=== PATIENT | female | born 1950 | race Caucasian/White ===

== ENCOUNTER 2017-10-02 09:48 | Day surgery (SDC) | payer MEDICARE ==
[~2017-10-02 09:48] MED LIST: ALBU0.63 NEB; ASPI81TA52 PO; ATOR40TA3 PO; CLOP75TA15 PO; FEXO180T94 PO; LEVO125T PO; LISI-600 PO; METF500T PO; OMEP40CA37 PO; TRAZ-143 PO
== END 2017-10-02 11:16 | disposition home or self-care (01) ==
LOC: WOUND CARE 09:48
PROVIDERS: ATTEND Surgery
DX: E11.621 Type 2 diabetes mellitus with foot ulcer (principal); L89.613 Pressure ulcer of right heel, stage 3; L97.411 Non-pressure chronic ulcer of right heel and midfoot limited to breakdown of skin; E11.65 Type 2 diabetes mellitus with hyperglycemia; I10 Essential (primary) hypertension; Z86.73 Personal history of transient ischemic attack (TIA), and cerebral infarction without residual deficits; Z87.891 Personal history of nicotine dependence; Z90.710 Acquired absence of both cervix and uterus; Z90.49 Acquired absence of other specified parts of digestive tract
CPT/HCPCS: 36416; 82948; 97597; A6021; A6206; A6209

== ENCOUNTER 2017-10-11 09:29 | Day surgery (SDC) | payer MEDICARE ==
[2017-10-11] MEDS ORDERED: LIDOcaine 2% 5ml jelly ONE (09:51)
== END 2017-10-11 10:41 | disposition home or self-care (01) ==
LOC: WOUND CARE 09:29
PROVIDERS: ATTEND Surgery
DX: E11.621 Type 2 diabetes mellitus with foot ulcer (principal); L89.613 Pressure ulcer of right heel, stage 3; L97.411 Non-pressure chronic ulcer of right heel and midfoot limited to breakdown of skin; E11.65 Type 2 diabetes mellitus with hyperglycemia; I10 Essential (primary) hypertension; Z86.73 Personal history of transient ischemic attack (TIA), and cerebral infarction without residual deficits; Z87.891 Personal history of nicotine dependence; Z90.710 Acquired absence of both cervix and uterus; Z90.49 Acquired absence of other specified parts of digestive tract
CPT/HCPCS: 36416; 82948; 97597; A6021; A6209; A6222; A6446

== ENCOUNTER 2017-10-18 09:25 | Day surgery (SDC) | payer MEDICARE ==
[2017-10-18] MEDS ORDERED: LIDOcaine 2% 5ml jelly ONE (09:49)
== END 2017-10-18 10:45 | disposition home or self-care (01) ==
LOC: WOUND CARE 09:25
PROVIDERS: ATTEND Surgery
DX: E11.621 Type 2 diabetes mellitus with foot ulcer (principal); L89.613 Pressure ulcer of right heel, stage 3; L97.411 Non-pressure chronic ulcer of right heel and midfoot limited to breakdown of skin; E11.65 Type 2 diabetes mellitus with hyperglycemia; I10 Essential (primary) hypertension; Z86.73 Personal history of transient ischemic attack (TIA), and cerebral infarction without residual deficits; Z87.891 Personal history of nicotine dependence; Z90.710 Acquired absence of both cervix and uterus; Z90.49 Acquired absence of other specified parts of digestive tract
CPT/HCPCS: 36416; 82948; 97597; A6021; A6206; A6209; A6446

== ENCOUNTER 2017-11-01 10:00 | Outpatient (CLI) | payer MEDICARE | END 2017-11-01 11:54 | disposition home or self-care (01) | LOC: WOUND CARE 10:00 | PROVIDERS: ATTEND Surgery | DX: E11.621 Type 2 diabetes mellitus with foot ulcer (principal); L89.613 Pressure ulcer of right heel, stage 3; L97.418 Non-pressure chronic ulcer of right heel and midfoot with other specified severity; E11.65 Type 2 diabetes mellitus with hyperglycemia; I10 Essential (primary) hypertension; Z86.73 Personal history of transient ischemic attack (TIA), and cerebral infarction without residual deficits; Z87.891 Personal history of nicotine dependence; Z90.710 Acquired absence of both cervix and uterus; Z90.49 Acquired absence of other specified parts of digestive tract | CPT/HCPCS: 99215; A4414; A6212 ==

== ENCOUNTER 2018-01-14 09:51 | Outpatient (CLI) | payer MEDICARE ==
[~2018-01-14 09:51] MED LIST changes: -TRAZ-143 PO; +TRAZ-218 PO
[2018-01-14] MEDS ORDERED: FURO-150 PO (10:51)
== END 2018-01-14 12:00 | disposition home or self-care (01) ==
LOC: WOUND CARE 09:51
PROVIDERS: ATTEND Surgery
DX: E11.621 Type 2 diabetes mellitus with foot ulcer (principal); L97.411 Non-pressure chronic ulcer of right heel and midfoot limited to breakdown of skin; E11.65 Type 2 diabetes mellitus with hyperglycemia; I10 Essential (primary) hypertension; Z86.73 Personal history of transient ischemic attack (TIA), and cerebral infarction without residual deficits; Z87.891 Personal history of nicotine dependence; Z90.710 Acquired absence of both cervix and uterus; Z90.49 Acquired absence of other specified parts of digestive tract
CPT/HCPCS: 36416; 82948; 99215; A6212

== ENCOUNTER 2024-02-28 22:21 | Emergency (ER) | payer BC, MEDICARE ==
[~2024-02-28] VITALS: Ht 144.8 cm; Wt 151.0 kg
[~2024-02-28 22:21] MED LIST changes: +ATOR-411 PO; -ATOR40TA3 PO; +FURO-150 PO; -LISI-600 PO; +LISI20TA28 PO; +OMEP40CA21 PO; -OMEP40CA37 PO; -TRAZ-218 PO; +TRAZ-251 PO
[2024-02-28 22:38] VITALS: BP 191/92; TEMP 97.8
[2024-02-28 23:07] LABS: BASOPHILS # (AUTO) 0.1 X10'3 (0-0.2); EOSINOPHILS # (AUTO) 0.1 X10'3 (0-0.9); EOSINOPHILS % (AUTO) 2.4 % (0-6); HEMATOCRIT 37.9 % (35.0-45.0); HEMOGLOBIN 13.1 g/dl (12.0-16.0); LYMPHOCYTES % (AUTO) 16.6 % (21-51); MEAN CORPUSCULAR HGB CONC 34.5 g/dL (33.0-36.5); MEAN CORPUSCULAR VOLUME 98.6 FL (78-98); MEAN PLATELET VOLUME 8.1 FL (7.4-10.4); MONOCYTES # (AUTO) 0.3 X10'3 (0-0.9); MONOCYTES % (AUTO) 5.7 % (2-12); NEUTROPHILS # (AUTO) 4.4 X10'3 (1.8-7.7); NEUTROPHILS % (AUTO) 74.3 % (42-75); PLATELET COUNT 310 X10'3 (140-440); RED BLOOD COUNT 3.85 X10'6 (4.20-5.60); RED CELL DISTRIBUTION WIDTH 16.4 % (11.5-14.5); WHITE BLOOD COUNT 5.9 X10'3 (4.5-11.0)
[2024-02-28 23:18] LABS: APTT 24 SECONDS (22-32); INR 0.9 INR; PROTHROMBIN TIME 9.9 SECONDS (9.0-12.0)
[2024-02-28 23:19] LABS: ALANINE AMINOTRANSFERASE 55 U/L (12-78); ALBUMIN 3.7 G/DL (3.4-5.0); ALKALINE PHOSPHATASE 117 IU/L (46-116); ANION GAP 8 (8-16); ASPARTATE AMINO TRANSFERASE 59 U/L (10-37); BILIRUBIN,TOTAL 0.4 MG/DL (0.1-1.0); BLOOD UREA NITROGEN 18 MG/DL (7-18); BUN/CREATININE RATIO 11.3 (10.0-20.0); CALCIUM 9.1 MG/DL (8.5-10.1); CHLORIDE 102 MMOL/L (99-107); GLUCOSE 88 MG/DL (70-104); POTASSIUM 3.9 MMOL/L (3.5-5.1); SODIUM 141 MMOL/L (135-145); TOTAL CARBON DIOXIDE 30.7 MMOL/L (24-32); TOTAL PROTEIN 7.4 G/DL (6.4-8.2); eCRCL 19 ML/MIN; eGFR 31 ML/MIN
[2024-02-28 23:24] LABS: BILIRUBIN,DIRECT 0.1 MG/DL (0-0.3)
[2024-02-29 00:42] LABS: BILIRUBIN,URINE NEGATIVE (Neg); CLARITY,URINE SLIGHTLY CLOUDY (Clear); COLOR,URINE YELLOW (Yellow); GLUCOSE, URINE NEGATIVE (Neg); KETONES,URINE NEGATIVE (Neg); LEUKOCYTE ESTERASE ,URINE NEGATIVE (Neg); NITRITES, URINE NEGATIVE (Neg); OCCULT BLOOD,URINE NEGATIVE (Neg); PROTEIN,URINE TRACE mg/dl (Neg); UROBILINOGEN,URINE 0.2 E.U/dL (0.2-1.0)
[2024-02-29 00:44] LABS: UA COLLECTION TYPE VOIDED
[2024-02-29 00:52] LABS: TRANSITIONAL EPI CELLS,URINE MODERATE /HPF
[2024-02-29] MEDS: acetaminophen 325mg tablet PO ONE (00:52)
[2024-02-29 00:54] LABS: AMORPHOUS URATES 1+; BACTERIA,URINE 2+ /HPF (Neg); COARSE GRANULAR CAST 0-3 /LPF (NEGATIVE); HYALINE CASTS 0-3 /LPF (NEGATIVE); MUCUS STRANDS FEW /LPF (Neg); RBC,URINE NONE SEEN /HPF (0-2)
[2024-02-29 00:56] LABS: SQUAMOUS EPITHELIAL CELL,UR MODERATE /LPF (FEW)
[2024-02-29 01:04] VITALS: PULSE 85; RESP 16; O2SAT 99
== END 2024-02-29 01:06 | disposition home or self-care (01) ==
LOC: ER 22:23
DX: S00.03XA Contusion of scalp, initial encounter (principal); R94.31 Abnormal electrocardiogram [ECG] [EKG]; M54.2 Cervicalgia; G89.29 Other chronic pain; M54.9 Dorsalgia, unspecified; Z88.2 Allergy status to sulfonamides; Z88.8 Allergy status to other drugs, medicaments and biological substances; Z88.0 Allergy status to penicillin; Z88.1 Allergy status to other antibiotic agents; Z79.84 Long term (current) use of oral hypoglycemic drugs; Z79.82 Long term (current) use of aspirin; Z79.899 Other long term (current) drug therapy; W18.39XA Other fall on same level, initial encounter; Y93.89 Activity, other specified; Y92.89 Other specified places as the place of occurrence of the external cause; Y99.8 Other external cause status
CPT/HCPCS: 36415; 70450; 71045; 72125; 80048; 80076; 81001; 84484; 85025; 85610; 85730; 87088; 93005; 99285

== ENCOUNTER 2024-10-06 19:28 | Inpatient (IN) | payer BC ==
[~2024-10-06] VITALS: Ht 147.3 cm; Wt 57.0 kg
[~2024-10-06 19:28] MED LIST changes: -CLOP75TA15 PO
--- NOTE | 2024-10-06 19:33 | ELECTROCARDIOGRAPH REPORT ---
[facility] Test Date: 2024-10-06 Test Time: 19:29:20 Pat Name: JOB PETTY Department: EMERGENCY ROOM Room: Gender: F Policy Change Clerk: : 1950 Requested By: IRMA ESQUIVEL Order Number: [id number] Reading MD: Measurements Intervals [place] Rate: 82 P: -40 NM: 142 QRS: -10 QRSD: 83 T: 98 QT: 362 QTc: 423 Interpretive Statements Sinus rhythm Nonspecific T abnormalities, lateral leads Please click the below link to view image of tracing.
[2024-10-06 19:46] LABS: BASOPHILS # (AUTO) 0.1 X10'3 (0-0.2); BASOPHILS % (AUTO) 1.2 % (0-1); EOSINOPHILS # (AUTO) 0.2 X10'3 (0-0.9); HEMATOCRIT 31.2 % (35.0-45.0); HEMOGLOBIN 10.2 g/dl (12.0-16.0); LYMPHOCYTES # (AUTO) 1.2 X10'3 (1.1-4.8); LYMPHOCYTES % (AUTO) 18.8 % (21-51); MEAN CORPUSCULAR HEMOGLOBIN 31.7 PG (27.0-31.0); MEAN CORPUSCULAR HGB CONC 32.8 g/dL (33.0-36.5); MEAN CORPUSCULAR VOLUME 96.5 FL (78-98); MEAN PLATELET VOLUME 7.6 FL (7.4-10.4); MONOCYTES # (AUTO) 0.6 X10'3 (0-0.9); MONOCYTES % (AUTO) 9.4 % (2-12); NEUTROPHILS # (AUTO) 4.4 X10'3 (1.8-7.7); NEUTROPHILS % (AUTO) 67.6 % (42-75); PLATELET COUNT 371 X10'3 (140-440); RED BLOOD COUNT 3.23 X10'6 (4.20-5.60); RED CELL DISTRIBUTION WIDTH 14.5 % (11.5-14.5); WHITE BLOOD COUNT 6.5 X10'3 (4.5-11.0)
--- NOTE | 2024-10-06 19:51 | Physician Documentation ---
History of Present Illness ~ Chief Complaint: Chest Pain Stated Complaint: CP Time Seen by MD: 19:33 Primary Medical Doctor: J CARLOS Mode of Arrival: POV HPI Patient presents to the emergency room with central chest pain that woke her up from sleep this evening. No prior instances. Pressure-like in nature. No nausea or vomiting. She denies one legged pain or swelling. She does report distant history of aortic surgery. No exacerbating or relieving factors. Nitroglycerin had no effect. 11/29. Past medical history significant for chronic kidney disease, hypothyroidism, diabetes, hyperlipidemia, hypertension and patient does smoke. She denies history of coronary artery disease. She does endorse history of prior strokes and takes Plavix. She states she does not have a digital advertising analyst Medication Reconciliation Allergies: Coded Allergies: Sulfa (Sulfonamide Antibiotics) (Verified Allergy, Severe, ANAPHYLACTIC SHOCK, 02/25/16) capsaicin (Verified Allergy, Severe, BLISTERS ERYTHEMA RASH, 02/25/16) ketoprofen (Verified Allergy, Severe, ANAPHALAXIS, 02/25/16) cefotaxime (Verified Allergy, Intermediate, WHEAL AND FARE RXN, RED WELTS ON LIMBS AND FACE, 02/25/16) Penicillins (Verified Allergy, Mild, RASH HIVES, 02/25/16) Tetracyclines (Verified Allergy, Mild, HIVES, 02/25/16) doxycycline (Verified Allergy, Mild, RASH, 02/25/16) gentamicin (Verified Allergy, Mild, RASH, 02/25/16) heparin (porcine) (Verified Allergy, Mild, HIVES, 02/25/16) sulfacetamide (Verified Allergy, Mild, HIVES, 02/25/16) tobramycin (Verified Allergy, Mild, RASH, 02/25/16) Aminoglycosides (Unverified Allergy, Unknown, 02/25/16) LISTED ON HER MEDICAL RECORDS BY [facility], OR Pyrimidine Analogues (Unverified Allergy, Unknown, 02/25/16) LISTED ON HER MEDICAL RECORDS BY [facility], OR ciprofloxacin (Unverified Allergy, Unknown, 02/25/16) LISTED ON HER MEDICAL RECORDS BY [facility], OR zolpidem (Verified Adverse Reaction, Severe, SLEEPWALKING, INAPPROPRIATE BEHAVIOR, 02/25/16) minocycline (Verified Adverse Reaction, Intermediate, NAUSEA AND VOMITING, 02/25/16) promethazine (Verified Adverse Reaction, Mild, RASH, 02/25/16) Scheduled Albuterol Sulfate (Albuterol Sulfate), Unknown Dose NEB Q6H, (Reported) Atorvastatin Calcium (Lipitor), 1 TABLET PO HS, (Reported) Clopidogrel Bisulfate (Plavix), 75 MG PO DAILY, (Reported) Fexofenadine* (Angelica*), Unknown Dose PO DAILY, (Reported) Levothyroxine Sodium (Synthroid), 1 TAB PO DAILY, (Reported) Lisinopril (Lisinopril), 1 TAB PO DAILY, (Reported) Metformin Hcl* (Glucophage*), 1 TAB PO DAILY, (Reported) Omeprazole (Prilosec), 20 MG PO DAILY, (Reported) Trazodone HCl (Trazodone HCl), 1 TAB PO HS, (Reported) Discontinued Medications Aspirin (Aspirin EC), 1 TABLET PO DAILY, (Reported) Discontinued Reason: completed med therapy Furosemide* (Lasix*), 1 TAB PO DAILY, (Reported) Discontinued Reason: completed med therapy Past Medical History Past Medical History: Multiple Sclerosis, *RENAL/*, Chronic Back Pain Past Surgical History: noncontributory Alcohol Use: None Drug Use: none Lives with: Family Lives In: Home Review of Systems ROS All review of systems negative except as per HPI Physical Exam Vital Signs: Temperature: 98.8, Source: Oral, Heart Rate: 75, Respiratory Rate: 17, BP: 114/67, Pulse Oximetry: 94, Weight: 57.000 Physical Exam General: Patient is awake, alert, oriented x4 in no acute distress Head: Normocephalic and atraumatic. Eyes: Conjunctival normal. EOMI. PERRL. ENT: Mucous membranes moist. Neck: Supple, trachea is midline. Chest: Clear to auscultation bilaterally without rales, rhonchi, or wheezes. There is no accessory muscle use or retractions. Cardiac: RRR without murmurs, gallops, or rubs. Abd: Soft, nondistended, nontender, with normoactive bowel sounds. No guarding, rebound, or rigidity. Extremities: Normal strength. Normal range of motion. No deformities or edema. Progress Progress Note Noted mild elevation in troponin. Repeat EKG shows no changes. Patient is allergic to heparin. Consulted with digital advertising analyst who recommends bivalirudin. We are working with pharmacist to see if this is available and for possible therapeutic substituted. We will hold off dosing until CT clears aorta given patient's history of some degree of aortic pathology. Results/Orders Results/Orders Orders - MONTY HOLLEY MD Chest,Single View (10/06/24 19:45) Monitor (10/06/24 19:31) Saline Lock (10/06/24 19:) Oxygen (10/06/24 19:31) Hs Troponin I W Calculations (10/06/24 22:31) Cta Chest Aorta (10/06/24 21:30) Bivalirudin 250mg Inj. (Angiomax 250mg I (10/07/24 10:00) Tirofiban 12.5mg In Ns 250ml (Aggrastat (10/06/24 22:15) Page Hospitalist (10/06/24 22:14) Fill Out Med Reconciliation (10/06/24 22:14) Morphine 4mg/Ml Inj. (Morphine Inj.) (10/06/24 22:25) Completed Orders - MONTY HOLLEY MD Chest,Single View (10/06/24 19:45) Cbc/Diff (10/06/24 19:31) BMP (10/06/24 19:31) PBNP (10/06/24 19:31) Electrocardiogram (10/06/24 19:31) Hs Troponin I W Calculations (10/06/24 19:31) Hs Troponin I W Calculations (10/06/24 21:31) D-Dimer (10/06/24 19:36) Ondansetron Inj. (Zofran 4mg/2ml Vial) (10/06/24 20:15) Morphine 4mg/Ml Inj. (Morphine Inj.) (10/06/24 20:15) Cta Chest Aorta (10/06/24 21:30) Bivalirudin 250mg Inj. (Angiomax 250mg I (10/06/24 20:25) Morphine 4mg/Ml Inj. (Morphine Inj.) (10/06/24 20:34) Normal Saline 1000ml (Sodium Chloride 10 (10/06/24 21:15) Iohexol 350mg/Ml 100ml (Omnipaque 350mg/ (10/06/24 21:31) Medications Received in ER Medications (Trade) Dose Ordered Sig/Dereck Route PRN Reason Start Time Stop Time Status Last Admin Dose Admin (Zofran 4mg/2ml vial) 4 mg ONCE ONCE IV 10/06/24 20:15 10/06/24 20:16 DC 10/06/24 20:37 4 MG (morphine inj.) 4 mg ONCE ONCE IV 10/06/24 20:15 10/06/24 20:16 DC 10/06/24 20:38 4 MG Sodium Chloride 1,000 ml @ 1,000 mls/hr ONCE ONCE IV 10/06/24 21:15 10/06/24 22:15 DC 10/06/24 21:26 1,000 MLS/HR Vital Signs 10/06/24 10/06/24 10/06/24 10/06/24 19:31 19:38 19:39 22:03 Temp 98.8 98.8 Pulse 75 62 Resp B/P (MAP) 114/67 114/67 (83) 118/61 (80) Pulse Ox 94 94 Laboratory Tests Test 10/06/24 19:36 10/06/24 21:30 White Blood Count 6.5 Red Blood Count 3.23 L Hemoglobin 10.2 L Hematocrit 31.2 L Mean Corpuscular Volume 96.5 Mean Corpuscular Hemoglobin 31.7 H Mean Corpuscular Hemoglobin Concent 32.8 L Red Cell Distribution Width 14.5 Platelet Count 371 Mean Platelet Volume 7.6 Neutrophils (%) (Auto) 67.6 Lymphocytes (%) (Auto) 18.8 L Monocytes (%) (Auto) 9.4 Eosinophils (%) (Auto) 3.0 Basophils (%) (Auto) 1.2 H Neutrophils # (Auto) 4.4 Lymphocytes # (Auto) 1.2 Monocytes # (Auto) 0.6 Eosinophils # (Auto) 0.2 Basophils # (Auto) 0.1 CBC Comment D-Dimer 0.72 H D-Dimer Comment Sodium Level 142 Potassium Level 4.0 Chloride Level 108 H Carbon Dioxide Level 25.3 Anion Gap 9 Blood Urea Nitrogen 35 H Creatinine 1.15 H Estimated GFR/1.73 m2 46 BUN/Creatinine Ratio 30.4 H Glucose Level 105 H Calcium Level 9.3 Troponin I High Sensitivity 209 *H 235 *H Pro-B-Type Natriuretic Peptide 243 Albumin 3.3 L Chemistry Comments Troponin I High Sens Percent Delta 12 Troponin I Hi Sens Absolute Change 26 EKG/XRAY/CT/US/VASC/MRI EKG : Additional Comment EKG interpreted by myself shows time of 192, rate 82, sinus rhythm, borderline left axis deviation, no ST changes Repeat EKG interpreted by myself shows time of 2015, rate 63, sinus rhythm, normal axis, no ST changes Chest X-Ray : Additional Comments Exam: CHEST,SINGLE VIEW CHEST RADIOGRAPH Indication: CP Technique: Single frontal view of the chest was obtained COMPARISON: DI CHEST,SINGLE VIEW on DOS: 02/28/24 FINDINGS: Lines and Tubes: None Lungs: Mild increased interstitial prominence may represent mild pulmonary vascular congestion or viral pneumonia. Pleura: No effusion. No pneumothorax. Cardiomediastinal contours: Median sternotomy. Bones: Unremarkable IMPRESSION: 1. Pulmonary vascular congestion or viral pneumonias : Impression Exam: CTA CHEST AORTA EXAM: CT CTA CHEST AORTA W/ IV CONTRAST History: cp Comparison Study: None TECHNIQUE: A digital paper winder image was obtained. During the uneventful, intravenous administration of contrast material, multislice data acquisition was obtained through the chest. 3-D postprocessing is performed by technologist including MIP imaging Radiation Dose : CTDI vol 10.8 mGy, DLP 299.3 mGy*cm. Findings: Evaluation is mildly degraded by respiratory motion. Lungs: There are mild atelectatic changes. Pleura: Unremarkable Heart/Great vessels: There is cardiomegaly. Mild coronary atherosclerosis. No pulmonary embolism, aneurysm, or dissection. There is moderate calcified and noncalcified plaque about the aorta. Median sternotomy changes are noted. Mediastinum: Unremarkable Soft tissues/Bones: Unremarkable Prior cholecystectomy with prominent intra and extrahepatic biliary ductal dilatation, incompletely assessed. Impression: 1. No evidence of a pulmonary embolism, aneurysm, or dissection. Incidental findings as detailed. Medical Decision Making Findings Patient presented to the emergency room with chest pain. Differentials include but are not limited to ACS, aortic pathology, pulmonary embolism from musculoskeletal pain therefore emergent labs and imaging indicated. Patient was noted elevation of troponins however no ST-elevation. Patient is allergic to heparin therefore we have started Aggrastat. Departure Admitted to Inpatient Unit: yes, to hospitalist Impression: Primary Impression: NSTEMI (non-ST elevated myocardial infarction) Referrals: NO PRIMARY CARE PROVIDER (PCP) Critical Care Note Total Time (mins): 57 Critical Care Note The very real possibility of a deterioration of this patient's condition required the highest level of my preparedness for sudden, emergent intervention. I provided critical care services, which included medication orders, frequent reevaluations of the patient's condition and response to treatment, ordering and reviewing test results, and discussing the case with various consultants. Excludes time spent performing separately billable procedures. The critical care time associated with the care of the patient was 57 minutes not counting procedures Signature Scribe Signature: No scribe Attestation: The note accurately reflects work and decisions made by me.Monty Holley MD 10/06/24 22:19 MONTY HOLLEY MD Oct 06, 2024 19:51
[2024-10-06 19:54] LABS: D-DIMER 0.72 MG/L FEU (0-0.50)
--- NOTE | 2024-10-06 19:58 | RADIOLOGY REPORT ---
CHEST RADIOGRAPH Indication: CP Technique: Single frontal view of the chest was obtained COMPARISON: DI CHEST,SINGLE VIEW on DOS: 02/28/24 FINDINGS: Lines and Tubes: None Lungs: Mild increased interstitial prominence may represent mild pulmonary vascular congestion or vir al pneumonia. Pleura: No effusion. No pneumothorax. Cardiomediastinal contours: Median sternotomy. Bones: Unremarkable IMPRESSION: 1. Pulmonary vascular congestion or viral pneumonias
[2024-10-06 20:07] LABS: ALBUMIN 3.3 G/DL (3.4-5.0); ANION GAP 9 (8-16); BLOOD UREA NITROGEN 35 MG/DL (7-18); BUN/CREATININE RATIO 30.4 (10.0-20.0); CALCIUM 9.3 MG/DL (8.5-10.1); CHLORIDE 108 MMOL/L (99-107); CREATININE 1.15 MG/DL (0.40-0.90); GLUCOSE 105 MG/DL (70-104); PRO BRAIN NATRIURETIC PEPTIDE 243 PG/ML (0-450); SODIUM 142 MMOL/L (135-145); TOTAL CARBON DIOXIDE 25.3 MMOL/L (24-32); eCRCL 27 ML/MIN; eGFR 46 ML/MIN
[2024-10-06] MEDS: ondansetron/PF 4mg/2ml inj IV ONE (20:37)
[2024-10-06] MEDS: morphine 4 MG/ML inj SYRINge IV ONE ×2 (20:38→22:50)
[2024-10-06] MEDS: morphine 4 MG/ML inj SYRINge ONE (20:41)
[2024-10-06] MEDS: normal saline 1000ml 1,000 ML IV ONE (21:26)
[2024-10-06] MEDS ORDERED: iohexol 350MG/ML 100ml bottle IV ONE (21:31)
--- NOTE | 2024-10-06 22:11 | RADIOLOGY REPORT ---
EXAM: CT CTA CHEST AORTA W/ IV CONTRAST History: cp Comparison Study: None TECHNIQUE: A digital homicide investigator image was obtained. During the uneventful, intravenous administration of c ontrast material, multislice data acquisition was obtained through the chest. 3-D postprocessing is performed by technologist including MIP imaging Radiation Dose : CTDI vol 10.8 mGy, DLP 299.3 mGy*cm. Findings: Evaluation is mildly degraded by respiratory motion. Lungs: There are mild atelectatic changes. Pleura: Unremarkable Heart/Great vessels: There is cardiomegaly. Mild coronary atherosclerosis. No pulmonary embolism, ane urysm, or dissection. There is moderate calcified and noncalcified plaque about the aorta. Median st ernotomy changes are noted. Mediastinum: Unremarkable Soft tissues/Bones: Unremarkable Prior cholecystectomy with prominent intra and extrahepatic biliary ductal dilatation, incompletely a ssessed. Impression: 1. No evidence of a pulmonary embolism, aneurysm, or dissection. Incidental findings as detailed.
[2024-10-06] MEDS ORDERED: ondansetron/PF 4mg/2ml inj IV PRN (22:30)
[2024-10-06] MEDS ORDERED: potassium Cl 40MEQ/1/2NS 520ml 520 ML IV PRN (22:30)
[2024-10-06] MEDS ORDERED: magnesium sulf-water 4G/100mL 100 ML IV PRN (22:30)
[2024-10-06] MEDS ORDERED: potassium Cl 20 mEq SR tablet PO PRN ×2 (22:30)
[2024-10-06] MEDS ORDERED: magnesium sulf-water 2g/50mL 50 ML IV PRN (22:30)
[2024-10-06] MEDS ORDERED: magnesium Cl slow-release 64mg tablet PO PRN (22:30)
[2024-10-06 22:46] LABS: HEMOGLOBIN A1C 5.5 % (4.5-6.2)
[2024-10-06] MEDS: PERFLUTREN PROTEIN-A MICROSPHR (Optison) 0.22 MG/ML 3ML VIAL IV ONE (22:46)
[2024-10-06] MEDS: carVEDilol 3.125mg tablet PO SCH (22:51)
[2024-10-06] MEDS: atorvastatin 20mg tablet PO SCH (22:52)
[2024-10-06] MEDS: lisinopril 10 MG tablet PO SCH (22:52)
[2024-10-06] MEDS: aspirin 325mg tablet, delayed-release (Ecotrin) PO ONE (22:52)
--- NOTE | 2024-10-06 23:12 | HISTORY AND PHYSICAL-Residence ---
History & Physical Providers to CC Resident Creating Document: VU EASTMAN RENARD ~ History of Present Illness Primary Medical Doctor: J CARLOS Reason for Admit\\Complaint: Chest pain History of Present Illness This is a 74-year-old female with a history of CKD, type 2 diabetes mellitus, hypothyroidism, hyperlipidemia, hypertension, and COPD who presents to ER with complaint of retrosternal chest pain that began last night and woke her up from sleep. She describes the pain as pressure-like, rated 8/10 in intensity, without clear exacerbating or relieving factor. Nitroglycerin did not alleviate the pain. She also reported associated nausea but denied diaphoresis or vomiting. She has a remote history of aortic surgery, though details are unclear. The patient is a current smoker, with an estimated one pack per day throughout her life. Initially, the patient expressed a desire to leave the hospital and return in the morning, even after discussing the potential need for Cardiology consultation in angiography. However, her sister, Traci ([phone]), who is very supportive advocate, encouraged her to remain in the hospital for further evaluation, and management, and she ultimately agreed. Per [facility] records, the patient was admitted there on July 20, 2024, for acute hypoxemic respiratory failure, severe sepsis, and aspiration pneumonia. During that stay, she was described as combative, resistant to taking medications, and refused oral intake. The medical team documented that it was a "constant cazares" to engage her in therapy. After further discussions, she was transition to comfort care for three days. Multiple family members visited, and and following another discussion, the decision was made to resume active treatment, including antibiotics for pneumonia. During that hospitalization, she required restraints and was started on Zyprexa 2.5 mg nightly for behavior management. Allergies: Coded Allergies: Sulfa (Sulfonamide Antibiotics) (Verified Allergy, Severe, ANAPHYLACTIC SHOCK, 02/25/16) capsaicin (Verified Allergy, Severe, BLISTERS ERYTHEMA RASH, 02/25/16) ketoprofen (Verified Allergy, Severe, ANAPHALAXIS, 02/25/16) cefotaxime (Verified Allergy, Intermediate, WHEAL AND FARE RXN, RED WELTS ON LIMBS AND FACE, 02/25/16) Penicillins (Verified Allergy, Mild, RASH HIVES, 02/25/16) Tetracyclines (Verified Allergy, Mild, HIVES, 02/25/16) doxycycline (Verified Allergy, Mild, RASH, 02/25/16) gentamicin (Verified Allergy, Mild, RASH, 02/25/16) heparin (porcine) (Verified Allergy, Mild, HIVES, 02/25/16) sulfacetamide (Verified Allergy, Mild, HIVES, 02/25/16) tobramycin (Verified Allergy, Mild, RASH, 02/25/16) Aminoglycosides (Unverified Allergy, Unknown, 02/25/16) [facility] [place] Pyrimidine Analogues (Unverified Allergy, Unknown, 02/25/16) [facility], [place] ciprofloxacin (Unverified Allergy, Unknown, 02/25/16) [facility] [place], [place] zolpidem (Verified Adverse Reaction, Severe, SLEEPWALKING, INAPPROPRIATE BEHAVIOR, 02/25/16) minocycline (Verified Adverse Reaction, Intermediate, NAUSEA AND VOMITING, 02/25/16) promethazine (Verified Adverse Reaction, Mild, RASH, 02/25/16) Home Medications Home Medications Active Reported Trazodone HCl 50 Mg Tablet 1 Tab PO HS 30 Days Prilosec (Omeprazole) 40 Mg Capsule 20 Mg PO DAILY 30 Days Glucophage* (Metformin HCl) 500 Mg Tablet 1 Tab PO DAILY 30 Days Lisinopril 20 Mg Tablet 1 Tab PO DAILY 30 Days Synthroid (Levothyroxine Sodium) 125 Mcg Tablet 1 Tab PO DAILY 30 Days Angelica* (Fexofenadine HCl) Unknown Strength Tablet Unknown Dose PO DAILY 30 Days Plavix (Clopidogrel Bisulfate) 75 Mg Tablet 75 Mg PO DAILY Do not stop medication unless instructed by prescriber. Lipitor (Atorvastatin Calcium) 40 Mg Tablet 1 Tablet PO HS Albuterol Sulfate (Albuterol) Unknown Strength Vial.neb Unknown Dose NEB Q6H 12 Days Past Medical History Past Medical History Respiratory failure, sepsis, CKD, hypothyroidism, diabetes, hyperlipidemia, hypotension Past Surgical History Surgical History Comment Aortic surgery Past Social History Social History Comment Patient lives by herself, smokes a pack of cigarettes per day throughout her life, denies alcohol or recreational drugs. She can ambulate. She has a helper lives with her. Alcohol Use: None Drug Use: None Lives with: Family Lives In: Home ROS All Other Systems: Reviewed and Negative ROS As stated above in the HPI, otherwise all systems are reviewed and negative. Exam Vitals: Vital Signs Date Time Temp Pulse Resp B/P (MAP) Pulse Ox O2 Delivery O2 Flow Rate FiO2 10/06/24 22:52 72 10/06/24 22:03 98.8 25 118/61 (80) 94 General Appearance: Well developed, well nourished. Awake, alert and oriented x4, resting comfortably in bed, in no acute distress. HEENT: Atraumatic, normocephalic, RUBIA, EOMI. Normal oropharynx, moist oral mucosa. Neck: Trachea midline. Supple, normal ROM. No JVD, bruit, lymphadenopathy or masses, or other lesions. Respiratory: Chest wall is symmetric and without deformity. No signs of respiratory distress. Equal breath sounds bilaterally. No wheeze, rub, Rales or crackles. Cardiac: RRR, no murmur, rub or gallop. Normal S1 and S2. GI: No tenderness. Abdomen symmetric, nondistended, soft, normal bowel sounds x4 quadrant normoactive. No guarding, no rebound or rigidity. No hepatosplenomegaly. No masses, no bruit, no flank pain bilaterally. Extremities: Normal ROM, no swelling, non-tender. Distal pulses full symmetrical, no clubbing, cyanosis, edema, capillary refill less than 2 seconds. Skin: Intact, dry, warm, no rashes or petechia. Neuro: Speech is clear, alert and oriented x4. No sensory or motor deficit, DTRs normal. Cranial nerves II to XII intact. Psych: Normal affect, good eye contact, no apparent hallucination, normal speech. Diagnostic Data Last Recorded Lab Results: 10/06/24193510/06/241935 Diagnostic Data: Laboratory Tests Test 10/06/24 19:36 D-Dimer 0.72 MG/L FEU (0-0.50) H D-Dimer Comment Advance Care Planning Advanced Care plannin - 30 Minutes Additional Plan NSTEMI Presented with pressure-like chest pain, troponins are elevated and up trending EKG; no acute ischemic changes CTA chest; no PE, aortic aneurysm, or dissection Admitted telemetry floor Heparin allergy, Angiomax not available until morning. Aggrastat drip initiated Aspirin 325, atorvastatin 40 mg, carvedilol 3.125, lisinopril 5 mg initiated NPO after midnight in preparation for possible PCI Cardiology consult pending in the morning ESPERANZA on CKD; likely renal tubular stasis Monitor BMP Urine lytes ordered, please follow Hypertension/hyperlipidemia Chronic conditions Resume home medications Continue atorvastatin 40 mg daily Follow lipid panel Hypothyroidism Resumed levothyroxine Follow TSH Tobacco use disorder Smokes one pack per day, lifelong Counseled on smoking cessation, declined interest Refused nicotine patch History of behavioral disturbance June [address] [facility] Previously combative, required restraints, started on Zyprexa 2.5 mg We will continue Zyprexa 2.5 mg daily Monitor for signs of delirium or agitation Prediabetes Follow HbA1C Code status: Full code DVT prophylaxis: Heparin allergy, Jayden Eastman Internal Medicine Resident I discussed the patient with the resident and agree with the assessment and plan, as documented above, with no changes. Ina Gutierrez MD Critical Care. Date of Service: Oct 06, 2024 Billing Provider: INA GUTIERREZ MD, SHAMS, RES Oct 06, 2024 23:12 INA GUTIERREZ MD Oct 07, 2024 17:46
[2024-10-06 23:25] VITALS: BP 107/46; PULSE 69; RESP 13; TEMP 97.5; O2SAT 94
[2024-10-06] MEDS: tirofiban 12.5mg in NS 250mL 250 ML IV SCH ×2 (23:30→23:54)
[2024-10-06] MEDS ORDERED: dextrose 50%-water 50ml dispensing syringe IV PRN ×2 (23:40)
[2024-10-06] MEDS ORDERED: DEXTROSE 15 GM of carb/4 tabs (each vial/BOTTLE has 4 tablets) PO PRN ×2 (23:40)
[2024-10-06] MEDS ORDERED: glucagon, human recombinant 1mg kit SUBCUT PRN (23:40)
[2024-10-06] MEDS: diphenhydrAMINE 25mg capsule PO ONE (23:44)
[2024-10-07] VITALS (8 sets, daily range): BP systolic 90–121; BP diastolic 45–55; PULSE 53–60; RESP 13–20; TEMP 97.1–97.9; O2SAT 93–96
[2024-10-07] MEDS: OLANZapine 2.5MG tablet PO SCH (00:02)
[2024-10-07] MEDS: morphine 2 MG/ML inj. syringe IV ONE (00:50)
[2024-10-07] MEDS: diphenhydrAMINE 50 mg/ml inj IV ONE (01:07)
[2024-10-07] MEDS: dexamethasone 4mg/ml inj IM ONE (01:07)
[2024-10-07] MEDS ORDERED: morphine 2 MG/ML inj. syringe IV ONE (04:00)
[2024-10-07] MEDS: pantoprazole 40 MG vial IV ONE (04:36)
[2024-10-07] MEDS: morphine 4 MG/ML inj SYRINge IV ONE (04:36)
[2024-10-07 04:45] LABS: LIPASE > 375 U/L (16-77)
[2024-10-07 05:56] LABS: ALANINE AMINOTRANSFERASE 16 U/L (12-78); ALBUMIN 2.7 G/DL (3.4-5.0); ALBUMIN/GLOBULIN RATIO 0.7 (1.1-1.5); ALKALINE PHOSPHATASE 62 IU/L (46-116); ANION GAP 9 (8-16); ASPARTATE AMINO TRANSFERASE 30 U/L (10-37); BILIRUBIN,TOTAL 0.2 MG/DL (0.1-1.0); BLOOD UREA NITROGEN 27 MG/DL (7-18); BUN/CREATININE RATIO 25.7 (10.0-20.0); CALCIUM 8.5 MG/DL (8.5-10.1); CHLORIDE 107 MMOL/L (99-107); CHOL/HDL RATIO 3.2 (0.00-4.99); CHOLESTEROL 167 MG/DL (0-200); CREATININE 1.05 MG/DL (0.40-0.90); GLUCOSE 108 MG/DL (70-104); HDL CHOLESTEROL 52 MG/DL (35-60); LDL CHOLESTEROL 90 MG/DL (50-100); POTASSIUM 4.4 MMOL/L (3.5-5.1); SODIUM 135 MMOL/L (135-145); TOTAL CARBON DIOXIDE 19.3 MMOL/L (24-32); TOTAL PROTEIN 6.5 G/DL (6.4-8.2); TRIGLYCERIDES 90 MG/DL (20-135); eCRCL 30 ML/MIN; eGFR 51 ML/MIN
--- NOTE | 2024-10-07 06:11 | ELECTROCARDIOGRAPH REPORT ---
[facility] Test Date: 2024-10-06 Test Time: 20:16:10 Pat Name: JOB PETTY Department: EMERGENCY ROOM Room: [place] [address] B Gender: F Bark Peeler: PM : 1950 Requested By: VU MCLEAN Order Number: [id number] Reading MD: Measurements Intervals [place] Rate: 63 P: 16 NH: 162 QRS: 11 QRSD: 93 T: 55 QT: 437 QTc: 448 Interpretive Statements Sinus rhythm Please click the below link to view image of tracing.
[2024-10-07 06:34] LABS: BASOPHILS % (AUTO) 0.3 % (0-1); EOSINOPHILS % (AUTO) 0.3 % (0-6); HEMATOCRIT 30.2 % (35.0-45.0); HEMOGLOBIN 9.7 g/dl (12.0-16.0); LYMPHOCYTES # (AUTO) 0.3 X10'3 (1.1-4.8); LYMPHOCYTES % (AUTO) 4.4 % (21-51); MEAN CORPUSCULAR HEMOGLOBIN 31.4 PG (27.0-31.0); MEAN CORPUSCULAR HGB CONC 32.3 g/dL (33.0-36.5); MEAN CORPUSCULAR VOLUME 97.1 FL (78-98); MEAN PLATELET VOLUME 7.9 FL (7.4-10.4); MONOCYTES # (AUTO) 0.1 X10'3 (0-0.9); MONOCYTES % (AUTO) 1.6 % (2-12); NEUTROPHILS % (AUTO) 93.4 % (42-75); PLATELET COUNT 317 X10'3 (140-440); RED BLOOD COUNT 3.11 X10'6 (4.20-5.60); RED CELL DISTRIBUTION WIDTH 14.4 % (11.5-14.5); WHITE BLOOD COUNT 7.5 X10'3 (4.5-11.0)
[2024-10-07] MEDS ORDERED: INSULIN LISPRO 100 UNIT/ML INSULN.PEN MULTI-DOSE SQ SCH (07:00)
[2024-10-07] MEDS: K and/or MAG REPLACEMENT MC SCH (08:00)
[2024-10-07] MEDS: aspirin 81mg, enteric-coated 1 TAB TABLET.DR PO SCH (08:27)
--- NOTE | 2024-10-07 10:28 | RADIOLOGY REPORT ---
CT CT ABDOMEN PELVIS INDICATION: epigastric pain and tenderness EXAM DATE: 10/07/2024 09:39 AM COMPARISON: None RADIATION DOSE: CTDIvol: 9 mGy, DLP: 493 mGy*cm PROCEDURE: Helical CT images were obtained of the abdomen and pelvis without IV contrast Sagittal and coronal reconstructions are provided. ORAL CONTRAST: None. ADDITIONAL IMAGES / REFORMATS: None All C T scans at this medical facility are performed using dose modulation techniques as appropriate to a p erformed exam including the following: Automated exposure control was utilized; adjustment of the MA and/or KV according to patient size; and use of iterative reconstruction technique. FINDINGS: LUNG BASE: There is bibasilar atelectasis. LIVER: Normal. GALLBLADDER AND BILIARY TREE: The gallbladder is absent. Dilated common bile duct 2 1.6 cm with multi ple dense filling defects could be seen with choledocholithiasis. PANCREAS: Normal. SPLEEN: Normal. BOWEL: Moderate colonic diverticulosis is visualized. No small bowel dilatation is seen. The appendix is not well visualized. ADRENALS: Normal. KIDNEYS AND URETER: There is a 3.4 cm right kidney cystic lesion. Retained contrast material is seen in the urinary collecting system from prior imaging. BLADDER: Normal. REPRODUCTIVE ORGANS: Normal. LYMPH NODES:No lymphadenopathy. PERITONEUM: No ascites or free air. No other fluid collection. VESSELS: Scattered atherosclerotic calcifications are noted. RETROPERITONEUM: Normal. ABDOMINAL WALL: Across this is seen in the right gluteus subcutaneous fat. BONES: Scattered osseous degenerative changes are noted. IMPRESSION: Dilated common bile duct to 1.6 cm with multiple dense filling defects could be seen with choledochol ithiasis. Consider MRCP for further evaluation.
[2024-10-07] MEDS: nitroGLYCERIN 0.4mg SUBLingual tab SL PRN (11:45)
--- NOTE | 2024-10-07 18:01 | PROGRESS NOTE ---
Daily Progress Note Providers to CC ~ CHIEF COMPLAINT, EPIGASTRIC PAIN Central Line/PICC still needed: No Gann-Non Protocol Gann Indications Met/Not Met: F/C Indications Not Met Antibiotic Timeout Antibiotic Ordered?: Yes MRSA Education MRSA Education Provided to pt: Yes Subjective As above Objective Vital Signs Date Time Temp Pulse Resp B/P (MAP) Pulse Ox O2 Delivery O2 Flow Rate FiO2 10/07/24 10:00 38 10/07/24 08:00 17 95 Room Air 10/06/24 23:25 97.5 107/46 (66) Vital signs, stable ,afebrile. Pulse Oximetry reflects adequate oxygenation. BMI is 26, weight 57 kg General: well developed, well nourished. Awake , alert, and oriented x4, resting comfortably in the bed, in no acute distress . Skin: Warm, dry, no pallor, no rash or petechiae. HEENT: Atraumatic, normocephalic, EOMI, anicteric sclera B; pink conjunctiva; PERRLA, normal oropharynx, moist oral and nasal mucosa. Tympanic membrane , nose , throat clear. Neck: Trachea midline. Supple, full range of motion, no JVD, bruit , hepatojugular reflex , lymphadenopathy or masses, or other lesions Cardiac: Regular rhythm, regular rate no murmurs, rubs, or gallops. Normal S1 and S2, no S3 noticed. PMI is normal. Respiratory: Equal breath sounds bilaterally, no tachypnea; lungs clear to auscultation bilaterally, no wheezing ,rub or rales, or crackles. Chest wall is symmetric and without deformity. No signs of trauma. Chest wall is nontender. No signs of respiratory distress. Resonance is normal upon percussion bilaterally. Gastrointestinal: Abdomen symmetric, non-distended, normal bowel sounds x4 quadrant, normoactive, no hepatosplenomegaly , no masses , no bruit, no flank pain bilaterally. No voluntary guarding, rebound, or rigidity. No tenderness to percussion. No pulsatile masses. Equal femoral pulses. No Aguilar's sign or McBurney point tenderness. Back; no CVA tenderness bilaterally, no deformities. Neck and back are without deformity as well. No tenderness noted on palpation of the spinous processes. Spinous processes are midline. Cervical, thoracic, and lumbar paraspinal muscles are not tender and are without spasm. locally, abdomen soft mild tender to palpation epigastric area Musculoskeletal: Extremities, normal range of motion, non-tender, muscle strength 5/5 x 4. Negative Homans signs bilaterally on lower extremity. Distal pulses full symmetrical, no clubbing, cyanosis , edema. Neurological: Speech is clear, alert, and oriented x 4. No motor or sensory deficit, deep tendon reflexes normal, cerebellar intact. Cranial nerves II-XII intact. Psych: Alert and or appropriate, normal affect. Vascular: Good distal pulses, which are equal x4; capillary refill less than 2 seconds. Lymphatic, no lymphadenopathy. Result Diagram: 10/07/24 0620 10/07/24 0447 Coagulation Studies Laboratory Tests Test 10/06/24 19:36 D-Dimer 0.72 MG/L FEU (0-0.50) H D-Dimer Comment Problem\Assessment\Plan Assessment/ Plan Acute pancreatitis Choledocholithiasis, status post cholecystectomy Non ST-elevation type 2, secondary to all of the above Presented with pressure-like chest pain, troponins are elevated and up trending EKG; no acute ischemic changes CTA chest; no PE, aortic aneurysm, or dissection Admitted telemetry floor Heparin allergy, Angiomax not available until morning. Aggrastat drip consult Aspirin 325, atorvastatin 40 mg, carvedilol 3.125, lisinopril 5 mg initiated Consulted real estate firm manager, Dr. Spears, recommended to stop aggressive stat and treat pancreatitis and choledocholithiasis, GI doctor is on the case consultation pending ESPERANZA on CKD; likely renal tubular stasis Monitor BMP Urine lytes ordered, please follow Hypertension/hyperlipidemia Chronic conditions Resume home medications Continue atorvastatin 40 mg daily Follow lipid panel Hypothyroidism Resumed levothyroxine Elevated TSH, T3-T4 pending Tobacco use disorder Smokes one pack per day, lifelong Counseled on smoking cessation, declined interest Refused nicotine patch History of behavioral disturbance June 2024 at [facility] Previously combative, required restraints, started on Zyprexa 2.5 mg We will continue Zyprexa 2.5 mg daily Monitor for signs of delirium or agitation Prediabetes Sepsis Screening Reassessment Date: Oct 07, 2024 Date of Service: Oct 07, 2024 Billing Provider: LATIA OROSCO MD Common Visit Codes: [id number] INP/OBS CARE(HIGH) LATIA OROSCO MD Oct 07, 2024 18:01
[2024-10-07 18:23] LABS: BASOPHILS # (AUTO) 0.1 X10'3 (0-0.2); BASOPHILS % (AUTO) 0.7 % (0-1); EOSINOPHILS % (AUTO) 0 % (0-6); HEMATOCRIT 33.1 % (35.0-45.0); HEMOGLOBIN 10.7 g/dl (12.0-16.0); LYMPHOCYTES # (AUTO) 0.8 X10'3 (1.1-4.8); LYMPHOCYTES % (AUTO) 9.1 % (21-51); MEAN CORPUSCULAR HEMOGLOBIN 31.4 PG (27.0-31.0); MEAN CORPUSCULAR HGB CONC 32.4 g/dL (33.0-36.5); MEAN PLATELET VOLUME 8.5 FL (7.4-10.4); MONOCYTES # (AUTO) 0.2 X10'3 (0-0.9); MONOCYTES % (AUTO) 2.5 % (2-12); NEUTROPHILS # (AUTO) 7.3 X10'3 (1.8-7.7); NEUTROPHILS % (AUTO) 87.7 % (42-75); PLATELET COUNT 389 X10'3 (140-440); RED BLOOD COUNT 3.41 X10'6 (4.20-5.60); RED CELL DISTRIBUTION WIDTH 14.7 % (11.5-14.5); WHITE BLOOD COUNT 8.4 X10'3 (4.5-11.0)
--- NOTE | 2024-10-07 19:04 | CARDIOLOGY REPORT ---
APPROVED REPORT EXAM: Comprehensive 2D, Doppler, and color-flow Echocardiogram. Patient Location: 302 Blood Pressure: 107/46 mmHg Heart Rate: 46 bpm Rhythm: Sinus Bradycardia Indications Chest Pain CCAD Diabetes Hypertension COPD Troponin 235 No steam service inspector No previous echo 2D Dimensions LA Diam4.1 cm IVSd 1.1 (0.7-1.1cm) LVDd 4.4 cm PWd 1.1 (0.7-1.1cm) IVSs 1.4 (0.8-1.2cm) LVDs 2.6 (2.5-4.0cm) Aortic Root(2D) 3.2 cm PWs 1.3 (0.8-1.2cm) LVOT Diameter 2.03 (1.8-2.4cm) LVEF(%) 70.8 (>50%) IVC 17.59 mmFS (%) 39.9 % SV 61.9 ml CO 3.0 L/min M-Mode Dimensions MV EPSS 0.5 (<0.5cm) Aortic Valve AoV Peak Tong. 288.2 cm/s AoV VTI 64.1 cm AO Peak GR. 33.2 mmHg AO Mean GR. 16 mmHg LVOT VTI 35.94 cm LVOT Peak Tong. 138.9 cm/s GABI(VTI)/BSA 1.81 cm2/m2 GABI (VTI) 1.81 cm2 Mitral Valve MV E Velocity 121.3 cm/s MV Peak Gr. 7 mmHg MV DECEL TIME 308 ms MV A Velocity 133.0 cm/s MV PHT 68 ms E/A Ratio 0.9 MVA (PHT) 3.24 cm2 MV [id number] cm/s TDI Medial E' P. V 7.70 cm/s E/Medial E' 15.8 Tricuspid Valve TR P. Velocity 230 cm/s RAP ESTIMATE 10 mmHg TR Peak Gr. 21 mmHg RVSP 31 mmHg Pulmonary Vein S1 Velocity 61.2 cm/s D2 Velocity 26.5 cm/s PVa [id number] cm/s PVa [id number] msec LEFT VENTRICLE Normal LV size and wall thickness. Overall systolic function is normal. LVEF is 70%. RIGHT VENTRICLE RV is normal size and function. ATRIA Left atrium is mildly dilated. AORTIC VALVE Trileaflet AV is calcified with mild stenosis. GABI is measured at 1.81 cmsq. Peak/mean gradients of 3 3/16 mmHG. Peak velocity is measured at 2.88 m/sec. MITRAL VALVE MV is thickened with mild annular calcification and no stenosis. Trace mitral regurgitation. TRICUSPID VALVE The tricuspid valve is normal in structure. Trace tricuspid regurgitation. PULMONIC VALVE The pulmonary valve is normal in structure. Trace pulmonic regurgitation. GREAT VESSELS The aortic root is normal in size. The IVC is normal in size and collapses >50% with inspiration. PERICARDIUM There is no pericardial effusion. Other Information Study Quality: Adequate Conclusion Normal LV size and wall thickness. Overall systolic function is normal. LVEF is 70%. RV is normal size and function. Left atrium is mildly dilated. Trileaflet AV is calcified with mild stenosis. GABI is measured at 1.81 cmsq. Peak/mean gradients of 3 3/16 mmHG. Peak velocity is measured at 2.88 m/sec. MV is thickened with mild annular calcification and no stenosis. Trace mitral regurgitation. The tricuspid valve is normal in structure. Trace tricuspid regurgitation. The pulmonary valve is normal in structure. Trace pulmonic regurgitation. There is no pericardial effusion.
[2024-10-07 20:19] LABS: THYROID STIMULATING HORMONE 14.5 ulU/ml (0.34-4.50)
[2024-10-07] MEDS: traZODone 50mg tablet PO SCH (20:34)
[2024-10-07] MEDS: HYDROcodone/acetaminophen 5mg/325mg tablet PO PRN (20:34)
[2024-10-07] MEDS ORDERED: non-formulary drug (Atorvastatin Calcium (Lipitor) 1 TABLET) PO SCH (21:00)
[2024-10-07] MEDS: OLANZapine 2.5MG tablet PO ONE (22:40)
--- NOTE | 2024-10-07 23:47 | RADIOLOGY REPORT ---
EXAM: CT CT HEAD INDICATION: Right arm numbness TECHNIQUE: CT of the head without intravenous contrast. Radiation Dose : 1. Head: CT Dose: CTDI volume is 55.85 mGy. Dose-length product is 1053.89 mGy*cm The dose indicators for CT are the volume Computed Tomography (CT) Dose Index (CTDIvol) and the Dose Length Product (DLP), and are measured in units of mGy and mGy-cm, respectively. These indicators are not patient dose, but values generated from the CT scanner acquisition factors. The report includes radiation exposure data for exposures received during this examination. COMPARISON: CT CT HEAD on DOS: 02/28/24 FINDINGS: There is no evidence of acute intracranial hemorrhage, extra-axial collection, mass effect, midline s hift, herniation or hydrocephalus. Increased prominence of the ventricles, sulci and cisterns is consistent with the sequelae of atrophi c cortical volume loss. The richardson-white differentiation is intact. Moderate diffuse confluent periventricular and subcortical white matter hypoattenuation is nonspecifi c but may be related to small vessel ischemic disease. The visualized paranasal sinuses and mastoid air cells are clear. The surrounding soft tissues and osseous structures are unremarkable. IMPRESSION: 1. No acute intracranial abnormality. 2. 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 Radiation optimization: All CT scans at this facility use at least one of these dose optimization jose hniques: automated exposure control mA and/or kV adjustment per patient size (includes targeted exam s where dose is matched to clinical indication) or iterative reconstruction.
[2024-10-08] VITALS (24 sets, daily range): BP systolic 78–178; BP diastolic 28–81; PULSE 38–81; RESP 10–24; TEMP 96.7–98.7; O2SAT 92–97
[2024-10-08] MEDS: normal saline 1000ml 1,000 ML IV ONE ×2 (04:45→05:52)
[2024-10-08 05:40] LABS: BASOPHILS # (AUTO) 0.1 X10'3 (0-0.2); BASOPHILS % (AUTO) 1.3 % (0-1); EOSINOPHILS # (AUTO) 0.1 X10'3 (0-0.9); EOSINOPHILS % (AUTO) 1.7 % (0-6); HEMOGLOBIN 9.9 g/dl (12.0-16.0); LYMPHOCYTES # (AUTO) 1.6 X10'3 (1.1-4.8); LYMPHOCYTES % (AUTO) 22.5 % (21-51); MEAN CORPUSCULAR HEMOGLOBIN 32.2 PG (27.0-31.0); MEAN CORPUSCULAR VOLUME 100.6 FL (78-98); MONOCYTES # (AUTO) 0.5 X10'3 (0-0.9); MONOCYTES % (AUTO) 6.8 % (2-12); NEUTROPHILS # (AUTO) 4.8 X10'3 (1.8-7.7); NEUTROPHILS % (AUTO) 67.7 % (42-75); PLATELET COUNT 318 X10'3 (140-440); RED BLOOD COUNT 3.08 X10'6 (4.20-5.60); WHITE BLOOD COUNT 7.1 X10'3 (4.5-11.0)
[2024-10-08 06:28] LABS: ALANINE AMINOTRANSFERASE 18 U/L (12-78); ALBUMIN 2.7 G/DL (3.4-5.0); ALBUMIN/GLOBULIN RATIO 0.8 (1.1-1.5); ALKALINE PHOSPHATASE 79 IU/L (46-116); ANION GAP 9 (8-16); ASPARTATE AMINO TRANSFERASE 12 U/L (10-37); BILIRUBIN,TOTAL 0.2 MG/DL (0.1-1.0); BLOOD UREA NITROGEN 36 MG/DL (7-18); BUN/CREATININE RATIO 31.3 (10.0-20.0); CALCIUM 8.6 MG/DL (8.5-10.1); CHLORIDE 111 MMOL/L (99-107); CREATININE 1.15 MG/DL (0.40-0.90); GLUCOSE 111 MG/DL (70-104); LIPASE 38 U/L (16-77); POTASSIUM 4.1 MMOL/L (3.5-5.1); SODIUM 144 MMOL/L (135-145); TOTAL CARBON DIOXIDE 24.3 MMOL/L (24-32); TOTAL PROTEIN 6.3 G/DL (6.4-8.2); eCRCL 27 ML/MIN; eGFR 46 ML/MIN
[2024-10-08] MEDS: clopidogrel 75mg tablet PO SCH (07:49)
[2024-10-08] MEDS: pantoprazole 40mg Tablet.DR PO SCH (07:49)
[2024-10-08] MEDS: levoTHYROXINE 125mcg tablet PO SCH (07:49)
[2024-10-08] MEDS: lisinopril 20mg tablet PO SCH (07:50)
[2024-10-08] MEDS: albumin (human) 25% 100 ML IV solution IV ONE (08:57)
[2024-10-08] MEDS: LORazepam 2 mg/ml vial IV ONE (10:45)
--- NOTE | 2024-10-08 12:20 | RADIOLOGY REPORT ---
PROCEDURE: MR MRCP Indication: pancreatitis; choledocholythiasis COMPARISON: 10/08/1999 TECHNIQUE: Multiplanar multisequence images of the abdomen are obtianed per MRCP protocol. FINDINGS: Examination degraded by motion. Gallbladder is removed. Dilatedm common bile duct up to 19 mm. Dilated intrahepatic ducts up to 14 mm. Multiple biliary calculi present measuring up to 1.6 cm Dilatation of the pancreatic duct to 5 mm. Bilateral renal cysts. No hydronephrosis. Tiny bilateral pleural effusions. Mesenteric edema. Retroperitoneal edema. Tiny amount of ascites fluid. IMPRESSION: Examination degraded by motion. Choledocholithiasis with calculi measuring up to 1.6 cm. Dilated common bile duct measuring 1.9 cm. Dilated intrahepatic ducts up to 1.4 cm. Dilatation of the pancreatic duct to 5 mm which can be secondary to underlying choledocholithiasis, a mpullary / pancreatic lesion. Cholecystectomy. Recommend GI consultation for further evaluation. Tiny bilateral pleural effusions.
[2024-10-08] MEDS ORDERED: glucagon, human recombinant 1mg kit ONE (13:19)
[2024-10-08] MEDS ORDERED: iohexol 300mg/ml 100ml inj. ONE (13:19)
[2024-10-08] MEDS ORDERED: labetalol 20mg/4ml (5mg/ml) syringe IV PRN (14:10)
[2024-10-08] MEDS ORDERED: ondansetron/PF 4mg/2ml inj IV PRN (14:10)
[2024-10-08] MEDS ORDERED: enalaprilat 1.25mg/ml 2ml vial IV PRN (14:10)
[2024-10-08] MEDS ORDERED: proCHLORperazine 10 MG/2 ml inj IV PRN (14:10)
[2024-10-08] MEDS ORDERED: ringers solution, lacted 1,000 ML IV SCH (14:10)
[2024-10-08] MEDS ORDERED: morphine 4 MG/ML inj SYRINge IV PRN (14:10)
[2024-10-08] MEDS ORDERED: meperidine/PF 25mg/ml syringe IV PRN ×3 (14:10)
[2024-10-08] MEDS ORDERED: morphine 2 MG/ML inj. syringe IV PRN (14:10)
[2024-10-08] MEDS ORDERED: fentaNYL/PF 50MCG/1 ML 2ML syringe ONE (14:18)
[2024-10-08] MEDS ORDERED: midazolam 1 mg/ML 2ml injection ONE (14:19)
[2024-10-08] MEDS ORDERED: sevoflurane 250ml liquid IH ONE (14:37)
[2024-10-08] MEDS ORDERED: rocuronium 10mg/ml inj IV ONE (15:30)
[2024-10-08] MEDS ORDERED: LIDOcaine 1%/PF 5ML 10 MG/ML VIAL ONE (15:30)
[2024-10-08] MEDS ORDERED: ondansetron/PF 4mg/2ml inj ONE (15:32)
--- NOTE | 2024-10-08 17:32 | PROGRESS NOTE ---
Daily Progress Note Providers to CC No new complaint today, awaiting to go to ERCP today ~ Central Line/PICC still needed: No Gann-Non Protocol Gann Indications Met/Not Met: F/C Indications Not Met Antibiotic Timeout Antibiotic Ordered?: Yes MRSA Education MRSA Education Provided to pt: Yes Subjective As above Objective Vital Signs Date Time Temp Pulse Resp B/P (MAP) Pulse Ox O2 Delivery O2 Flow Rate FiO2 10/08/24 17:00 97.4 52 15 115/54 (74) 92 Room Air 10/08/24 16:22 5.0 Vital signs, stable ,afebrile. Pulse Oximetry reflects adequate oxygenation. General: well developed, well nourished. Awake , alert, and oriented x4, resting comfortably in the bed, in no acute distress . Skin: Warm, dry, no pallor, no rash or petechiae. HEENT: Atraumatic, normocephalic, EOMI, anicteric sclera B; pink conjunctiva; PERRLA, normal oropharynx, moist oral and nasal mucosa. Tympanic membrane , nose , throat clear. Neck: Trachea midline. Supple, full range of motion, no JVD, bruit , hepatojugular reflex , lymphadenopathy or masses, or other lesions Cardiac: Regular rhythm, regular rate no murmurs, rubs, or gallops. Normal S1 and S2, no S3 noticed. PMI is normal. Respiratory: Equal breath sounds bilaterally, no tachypnea; lungs clear to auscultation bilaterally, no wheezing ,rub or rales, or crackles. Chest wall is symmetric and without deformity. No signs of trauma. Chest wall is nontender. No signs of respiratory distress. Resonance is normal upon percussion bilaterally. Gastrointestinal: Abdomen symmetric, non-distended, soft, tender to palpation epigastric area, normal bowel sounds x4 quadrant, normoactive, no hepatosplenomegaly , no masses , no bruit, no flank pain bilaterally. No voluntary guarding, rebound, or rigidity. No tenderness to percussion. No pulsatile masses. Equal femoral pulses. No Aguilar's sign or McBurney point tenderness. Back; no CVA tenderness bilaterally, no deformities. Neck and back are without deformity as well. No tenderness noted on palpation of the spinous processes. Spinous processes are midline. Cervical, thoracic, and lumbar paraspinal muscles are not tender and are without spasm. Musculoskeletal: Extremities, normal range of motion, non-tender, muscle strength 5/5 x 4. Negative Homans signs bilaterally on lower extremity. Distal pulses full symmetrical, no clubbing, cyanosis , edema. Neurological: Speech is clear, alert, and oriented x 4. No motor or sensory deficit, deep tendon reflexes normal, cerebellar intact. Cranial nerves II-XII intact. Psych: Alert and or appropriate, normal affect. Vascular: Good distal pulses, which are equal x4; capillary refill less than 2 seconds. Lymphatic, no lymphadenopathy. Result Diagram: 10/08/24 0504 10/08/24 0504 Coagulation Studies Laboratory Tests Test 10/06/24 19:36 D-Dimer 0.72 MG/L FEU (0-0.50) H D-Dimer Comment Problem\Assessment\Plan Assessment/ Plan Acute pancreatitis Choledocholithiasis, status post cholecystectomy, awaiting to go to ERCP today Non ST-elevation type 2, secondary to all of the above Presented with pressure-like chest pain, troponins are elevated and up trending EKG; no acute ischemic changes CTA chest; no PE, aortic aneurysm, or dissection Admitted telemetry floor Heparin allergy, Angiomax not available until morning. Aggrastat drip canceled yesterday Aspirin 325, atorvastatin 40 mg, carvedilol 3.125, lisinopril 5 mg initiated Consulted mutual fund accountant, Dr. Spears, recommended to stop aggressive stat and treat pancreatitis and choledocholithiasis, GI doctor is on the case consultation pending ESPERANZA on CKD; likely renal tubular stasis Monitor BMP Urine lytes ordered, please follow Hypertension/hyperlipidemia Chronic conditions Resume home medications Continue atorvastatin 40 mg daily Follow lipid panel Hypothyroidism Resumed levothyroxine Elevated TSH, T3-T4 pending Tobacco use disorder Smokes one pack per day, lifelong Counseled on smoking cessation, declined interest Refused nicotine patch History of behavioral disturbance June 2024 at [facility] Previously combative, required restraints, started on Zyprexa 2.5 mg We will continue Zyprexa 2.5 mg daily Monitor for signs of delirium or agitation Prediabetes Sepsis Screening Reassessment Date: Oct 08, 2024 Date of Service: Oct 08, 2024 Billing Provider: LATIA OROSCO MD Common Visit Codes: [id number] INP/OBS CARE(HIGH) LATIA OROSCO MD Oct 08, 2024 17:32
[2024-10-08 19:10] LABS: FREE T4 (FREE THYROXINE) 0.93 NG/DL (0.73-1.40)
[2024-10-08] MEDS: hydrALAZINE 20mg/ml inj. IV PRN (22:57)
[2024-10-09] VITALS: BP 148/60; PULSE 65; RESP 17
[2024-10-09 02:00] VITALS: BP 157/56; PULSE 72; RESP 18; TEMP 97.7; O2SAT 96
[2024-10-09 06:00] VITALS: BP 160/70; PULSE 71; RESP 20; TEMP 98; O2SAT 93
[2024-10-09 07:48] LABS: BASOPHILS # (AUTO) 0.1 X10'3 (0-0.2); BASOPHILS % (AUTO) 0.4 % (0-1); EOSINOPHILS % (AUTO) 0.1 % (0-6); HEMATOCRIT 30.6 % (35.0-45.0); HEMOGLOBIN 10.1 g/dl (12.0-16.0); LYMPHOCYTES # (AUTO) 0.6 X10'3 (1.1-4.8); LYMPHOCYTES % (AUTO) 3.6 % (21-51); MEAN CORPUSCULAR HEMOGLOBIN 31.5 PG (27.0-31.0); MEAN CORPUSCULAR VOLUME 95.4 FL (78-98); MEAN PLATELET VOLUME 7.8 FL (7.4-10.4); MONOCYTES # (AUTO) 0.5 X10'3 (0-0.9); MONOCYTES % (AUTO) 3.6 % (2-12); NEUTROPHILS # (AUTO) 14.2 X10'3 (1.8-7.7); NEUTROPHILS % (AUTO) 92.3 % (42-75); PLATELET COUNT 361 X10'3 (140-440); RED BLOOD COUNT 3.21 X10'6 (4.20-5.60); RED CELL DISTRIBUTION WIDTH 14.5 % (11.5-14.5); WHITE BLOOD COUNT 15.4 X10'3 (4.5-11.0)
[2024-10-09 08:00] VITALS: RESP 20; O2SAT 93
[2024-10-09 08:01] LABS: ALBUMIN 3.4 G/DL (3.4-5.0); ANION GAP 8 (8-16); BLOOD UREA NITROGEN 24 MG/DL (7-18); BUN/CREATININE RATIO 21.8 (10.0-20.0); CALCIUM 8.8 MG/DL (8.5-10.1); CHLORIDE 112 MMOL/L (99-107); GLUCOSE 100 MG/DL (70-104); POTASSIUM 4.1 MMOL/L (3.5-5.1); SODIUM 143 MMOL/L (135-145); eCRCL 29 ML/MIN; eGFR 48 ML/MIN
[2024-10-09 08:52] LABS: LIPASE 12 U/L (16-77)
[2024-10-09 11:00] VITALS: BP 141/70; PULSE 67; RESP 17; TEMP 97.3; O2SAT 93
[2024-10-09] MEDS ORDERED: CLOP75TA15 PO (11:04)
[2024-10-09] MEDS: acetaminophen 325mg tablet PO PRN (14:31)
[2024-10-09 15:00] VITALS: BP 136/56; PULSE 59; RESP 19; TEMP 97.9; O2SAT 95
--- NOTE | 2024-10-09 18:52 | DISCHARGE SUMMARY ---
Discharge Summary Providers to No new complaint today, good appetite able tolerate p.o. fluids and food, asking to be discharged home, cleared for discharge by GI doctor ~ Discharge Summary Assessment Choledocholithiasis, history of cholecystectomy Acute pancreatitis Non ST-elevation [place] type 2 secondary to all of the above Chronic kidney disease Hypertension hyperlipidemia Hypothyroidism Tobacco use disorder Prediabetes Admission Diagnosis: NSTEMI Admission Diagnosis Comment: Choledocholithiasis, history of cholecystectomy Acute pancreatitis Non ST-elevation [place] type 2 secondary to all of the above Chronic kidney disease Hypertension hyperlipidemia Hypothyroidism Tobacco use disorder Prediabetes Hospital Course DATE OF ADMISSION: October 06, 2024 DATE OF DISCHARGE: October 09 2024 Discharge Diagnosis\\Comment: Choledocholithiasis, history of cholecystectomy Acute pancreatitis Non ST-elevation [place] type 2 secondary to all of the above Chronic kidney disease Hypertension hyperlipidemia Hypothyroidism Tobacco use disorder Prediabetes Operations\\Procedures: ERCP with stent Consultants: GI doctor Complications: Non Condition on DC: Stable Discharge Summary: This is a 74-year-old female with a history of CKD, type 2 diabetes mellitus, hypothyroidism, hyperlipidemia, hypertension, and COPD who presents to ER with complaint of retrosternal chest pain that began last night and woke her up from sleep. She describes the pain as pressure-like, rated 8/10 in intensity, without clear exacerbating or relieving factor. Nitroglycerin did not alleviate the pain. She also reported associated nausea but denied diaphoresis or vomiting. She has a remote history of aortic surgery, though details are unclear. The patient is a current smoker, with an estimated one pack per day throughout her life.Initially, the patient expressed a desire to leave the hospital and return in the morning, even after discussing the potential need for Cardiology consultation in angiography. However, her sister, Traci ([phone]), who is very supportive advocate, encouraged her to remain in the hospital for further evaluation, and management, and she ultimately agreed.Per [facility] records, the patient was admitted there on July 20, 2024, for acute hypoxemic respiratory failure, severe sepsis, and aspiration pneumonia. During that stay, she was described as combative, resistant to taking medications, and refused oral intake. The medical team documented that it was a "constant cazares" to engage her in therapy. After further discussions, she was transition to comfort care for three days. Multiple family members visited, and and following another discussion, the decision was made to resume active treatment, including antibiotics for pneumonia. During that hospitalization, she required restraints and was started on Zyprexa 2.5 mg nightly for behavior management. After admission patient was extensively evaluated treated including ERCP, and stent, today she has no complaint feeling fine asking to be discharged home, was cleared for discharge by GI doctor, medication reconciled, she will be discharged in stable condition return to emergency department if condition worsens, follow with PCP GI doctor in two days, today on physical exam Vital signs, stable ,afebrile. Pulse Oximetry reflects adequate oxygenation. General: well developed, well nourished. Awake , alert, and oriented x4, resting comfortably in the bed, in no acute distress . Skin: Warm, dry, no pallor, no rash or petechiae. HEENT: Atraumatic, normocephalic, EOMI, anicteric sclera B; pink conjunctiva; PERRLA, normal oropharynx, moist oral and nasal mucosa. Tympanic membrane , nose , throat clear. Neck: Trachea midline. Supple, full range of motion, no JVD, bruit , hepatojugular reflex , lymphadenopathy or masses, or other lesions Cardiac: Regular rhythm, regular rate no murmurs, rubs, or gallops. Normal S1 and S2, no S3 noticed. PMI is normal. Respiratory: Equal breath sounds bilaterally, no tachypnea; lungs clear to auscultation bilaterally, no wheezing ,rub or rales, or crackles. Chest wall is symmetric and without deformity. No signs of trauma. Chest wall is nontender. No signs of respiratory distress. Resonance is normal upon percussion bilaterally. Gastrointestinal: Abdomen symmetric, non-distended, soft, non-tender, normal bowel sounds x4 quadrant, normoactive, no hepatosplenomegaly , no masses , no bruit, no flank pain bilaterally. No voluntary guarding, rebound, or rigidity. No tenderness to percussion. No pulsatile masses. Equal femoral pulses. No Aguilar's sign or McBurney point tenderness. Back; no CVA tenderness bilaterally, no deformities. Neck and back are without deformity as well. No tenderness noted on palpation of the spinous processes. Spinous processes are midline. Cervical, thoracic, and lumbar paraspinal muscles are not tender and are without spasm. Musculoskeletal: Extremities, normal range of motion, non-tender, muscle stre ngth 5/5 x 4. Negative Homans signs bilaterally on lower extremity. Distal pulses full symmetrical, no clubbing, cyanosis , edema. Neurological: Speech is clear, alert, and oriented x 4. No motor or sensory deficit, deep tendon reflexes normal, cerebellar intact. Cranial nerves II-XII intact. Psych: Alert and or appropriate, normal affect. Vascular: Good distal pulses, which are equal x4; capillary refill less than 2 seconds. Lymphatic, no lymphadenopathy. *Problems/Diagnosis: (1) NSTEMI (non-ST elevated myocardial infarction) Status: Acute Total Time Spent on D/C: > 30 Minutes Date of Service: Oct 09, 2024 Billing Provider: LATIA OROSCO MD Common Visit Codes: [id number] DISCH DAY >30min LATIA OROSCO MD Oct 09, 2024 18:52
--- NOTE | 2024-10-11 06:09 | RADIOLOGY REPORT ---
C-ARM FLUOROSCOPY: PROCEDURE: ERCP FLUOROSCOPY TIME: 129 DAP: 50 mgy FINDINGS: Spot intraoperative C arm radiographs demonstrating ERCP. IMPRESSION: Please refer to surgical report for detailed findings.
[2024-10-12] MEDS ORDERED: FLUT1AER INH (14:01)
== END 2024-10-09 15:18 | disposition home health service (06) | DRG 444 ==
LOC: ER 19:29 → PCU 3S 22:31
PROVIDERS: ADMIT Internal Medicine Pulmonary Disease; ATTEND Family Medicine
PROC: 0FC98ZZ Extirpation of Matter from Common Bile Duct, Via Natural or Artificial Opening Endoscopic (ICD-10-PCS; 2024-10-08)
PROC: BF101ZZ Fluoroscopy of Bile Ducts using Low Osmolar Contrast (ICD-10-PCS; 2024-10-08)
PROC: 0F798DZ Dilation of Common Bile Duct with Intraluminal Device, Via Natural or Artificial Opening Endoscopic (ICD-10-PCS; principal; 2024-10-08 14:12)
DX: K80.50 Calculus of bile duct without cholangitis or cholecystitis without obstruction (principal); I21.A1 Myocardial infarction type 2; K85.90 Acute pancreatitis without necrosis or infection, unspecified; N17.9 Acute kidney failure, unspecified; E03.9 Hypothyroidism, unspecified; E11.22 Type 2 diabetes mellitus with diabetic chronic kidney disease; E78.5 Hyperlipidemia, unspecified; G35 Multiple sclerosis; F17.210 Nicotine dependence, cigarettes, uncomplicated; N18.9 Chronic kidney disease, unspecified; I12.9 Hypertensive chronic kidney disease with stage 1 through stage 4 chronic kidney disease, or unspecified chronic kidney disease; Z88.6 Allergy status to analgesic agent; Z88.1 Allergy status to other antibiotic agents; Z88.0 Allergy status to penicillin; Z88.2 Allergy status to sulfonamides; Z88.8 Allergy status to other drugs, medicaments and biological substances; Z90.49 Acquired absence of other specified parts of digestive tract; Z79.899 Other long term (current) drug therapy; Z79.84 Long term (current) use of oral hypoglycemic drugs
CPT/HCPCS: 36415; 70450; 71045; 71275; 74176; 74181; 80048; 80053; 80061; 82948; 83036; 83690; 83880; 84439; 84443; 84480; 84484; 85025; 85379; 87081; 93005; 93306; 96374; 96375; 97116; 97161; 97530; 99291; A4615; A4620; C1769; C1889; C2625; G0378; J0360; J1100; J1200; J1610; J1815; J2060; J2250; J2270; J2405; J2470; J2704; J2710; J3010; J3246; J3490; J7030; P9047; Q0163; Q9967

== ENCOUNTER 2024-10-09 22:21 | Emergency (ER) | payer BC, MEDICARE ==
[~2024-10-09] VITALS: Ht 147.3 cm; Wt 59.5 kg
[~2024-10-09 22:21] MED LIST changes: -ASPI81TA52 PO; +CLOP75TA15 PO; -FURO-150 PO
[2024-10-09 22:31] VITALS: BP 170/87; PULSE 73; TEMP 100; O2SAT 96
[2024-10-09 22:45] VITALS: RESP 18
--- NOTE | 2024-10-09 22:51 | Physician Documentation ---
History of Present Illness Chief Complaint: Abdominal Pain Stated Complaint: CHEST PAIN Time Seen by MD: 22:51 Primary Medical Doctor: J CARLOS Mode of Arrival: EMS HPI 74-year-old female, who was just discharged from the hospital after cho ledocholithiasis with an ERCP and stent, who presents with abdominal pain. When I went to evaluate the patient, she tells me I just want to go home, I do not want anything. I asked her she was having abdominal pain and she says yes, states it is in her upper abdomen. She does ask for pain medication. She denies any fevers, vomiting, or other associated symptoms. Medication Reconciliation Allergies: Coded Allergies: Sulfa (Sulfonamide Antibiotics) (Verified Allergy, Severe, ANAPHYLACTIC SHOCK, 10/09/24) capsaicin (Verified Allergy, Severe, BLISTERS ERYTHEMA RASH, 10/09/24) ketoprofen (Verified Allergy, Severe, ANAPHALAXIS, 10/09/24) cefotaxime (Verified Allergy, Intermediate, WHEAL AND FARE RXN, RED WELTS ON LIMBS AND FACE, 10/09/24) Penicillins (Verified Allergy, Mild, RASH HIVES, 10/09/24) Tetracyclines (Verified Allergy, Mild, HIVES, 10/09/24) doxycycline (Verified Allergy, Mild, RASH, 02/25/16) gentamicin (Verified Allergy, Mild, RASH, 02/25/16) heparin (porcine) (Verified Allergy, Mild, HIVES, 02/25/16) sulfacetamide (Verified Allergy, Mild, HIVES, 02/25/16) tobramycin (Verified Allergy, Mild, RASH, 02/25/16) Aminoglycosides (Unverified Allergy, Unknown, 02/25/16) LISTED ON HER MEDICAL RECORDS BY [facility], OR Pyrimidine Analogues (Unverified Allergy, Unknown, 02/25/16) LISTED ON HER MEDICAL RECORDS BY [facility], OR ciprofloxacin (Unverified Allergy, Unknown, 02/25/16) LISTED ON HER MEDICAL RECORDS BY [facility], OR zolpidem (Verified Adverse Reaction, Severe, SLEEPWALKING, INAPPROPRIATE BEHAVIOR, 02/25/16) minocycline (Verified Adverse Reaction, Intermediate, NAUSEA AND VOMITING, 02/25/16) promethazine (Verified Adverse Reaction, Mild, RASH, 02/25/16) Scheduled Albuterol Sulfate (Albuterol Sulfate), Unknown Dose NEB Q6H, (Reported) Atorvastatin Calcium (Lipitor), 1 TABLET PO HS, (Reported) Clopidogrel Bisulfate (Plavix), 75 MG PO DAILY, (Reported) Fexofenadine* (Angelica*), Unknown Dose PO DAILY, (Reported) Levothyroxine Sodium (Synthroid), 1 TAB PO DAILY, (Reported) Lisinopril (Lisinopril), 1 TAB PO DAILY, (Reported) Metformin Hcl* (Glucophage*), 1 TAB PO DAILY, (Reported) Omeprazole (Prilosec), 20 MG PO DAILY, (Reported) Trazodone HCl (Trazodone HCl), 1 TAB PO HS, (Reported) Discontinued Medications Aspirin (Aspirin EC), 1 TABLET PO DAILY, (Reported) Discontinued Reason: completed med therapy Furosemide* (Lasix*), 1 TAB PO DAILY, (Reported) Discontinued Reason: completed med therapy Past Medical History Past Medical History: Multiple Sclerosis, *RENAL/*, Chronic Back Pain Past Surgical History: noncontributory Alcohol Use: None Drug Use: none Lives with: Family Lives In: Home Review of Systems Gastrointestinal: Reports: abdominal pain Physical Exam Vital Signs: Temperature: 100.0, Heart Rate: 73, Respiratory Rate: 18, BP: 170/87, Pulse Oximetry: 96, Weight: 59.500 Physical Exam General: This is an older female lying quietly in bed HEENT: Atraumatic, oropharynx appears dry Heart: Regular rate and rhythm, normal-appearing peripheral perfusion Lungs: normal work of breathing, normal oxygen saturation on room air Abdomen: Soft, nondistended, she is tender to palpation diffusely, worse in the upper abdomen Neuro: Alert and oriented, no focal deficits Psychiatric: Calm and poorly cooperative Progress Results/Orders Results/Orders Vital Signs 10/09/24 10/09/24 22:31 22:45 Temp 100.0 Pulse 73 Resp 18 18 B/P (MAP) 170/87 Pulse Ox 96 EKG/XRAY/CT/US/VASC/MRI EKG : Additional Comment I personally interpreted the EKG and this shows: Sinus rhythm, rate 69, QTC 446, nonspecific T-wave changes in the inferior leads, no STEMI Medical Decision Making Additional info obtained from: family Additional Comments The patient presents with abdominal pain. At time of my evaluation, she tells me that she wants to go home and does not want any further workup or testing. She declined blood work or abdominal imaging. She declined medications. She requested to leave. She is oriented, and I do not feel that she meets criteria for a medical hold. Her family member was contacted, and agreed that she can make her own medical decisions. She will be discharged with no further intervention. She was encouraged to return here for further testing and treatment. Departure Time of Disposition: 23:17 Disposition: 01 HOME / SELF CARE / HOMELESS Impression: Primary Impression: Abdominal pain Condition: Stable Discharge Instructions: Abdominal Pain (Nonspecific) Referrals: NO PRIMARY CARE PROVIDER (PCP) Education Educated: Patient Educated regarding: need for follow up Signature Scribe Signature: noreen Attestation: SYLVIA Euceda MD Oct 09, 2024 22:51
--- NOTE | 2024-10-09 22:52 | ELECTROCARDIOGRAPH REPORT ---
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
[2024-10-12] MEDS ORDERED: FLUT1AER INH (14:01)
== END 2024-10-09 23:46 | disposition home or self-care (01) ==
LOC: ER 22:21
DX: R10.9 Unspecified abdominal pain (principal); G35 Multiple sclerosis; Z88.0 Allergy status to penicillin; Z88.1 Allergy status to other antibiotic agents; Z88.2 Allergy status to sulfonamides; Z88.8 Allergy status to other drugs, medicaments and biological substances
CPT/HCPCS: 93005; 99284

== ENCOUNTER 2025-01-04 07:43 | Inpatient (IN) | payer BC ==
[2025-01-04] VITALS (11 sets, daily range): BP systolic 105–145; BP diastolic 59–84; PULSE 68–89; RESP 14–19; TEMP 97.4–98.1; O2SAT 89–97
[~2025-01-04] VITALS: Ht 152.4 cm; Wt 54.0 kg
[~2025-01-04 07:43] MED LIST changes: +FLUT1AER INH
--- NOTE | 2025-01-04 07:48 | ELECTROCARDIOGRAPH REPORT ---
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
--- NOTE | 2025-01-04 07:52 | Physician Documentation ---
History of Present Illness ~ Chief Complaint: Chest Pain Stated Complaint: STEMI Time Seen by MD: 07:52 Primary Medical Doctor: J CARLOS YOU 74-year-old female, reported history of CAD, dementia, who presents as a possible STEMI Per EMS, the patient arrives from an apartment, with sudden onset of central chest pain. EKG with possible ST elevation in the inferior leads. She was given aspirin and 1 nitroglycerin. Here in the ED, the patient reports 10/10 chest pain. She tells me that she felt normal and she woke up this morning. The pain is in the central chest. She reports dizziness and shortness of breath. She denies abdominal pain. She denies leg pain. History is somewhat limited due to her dementia, she is a limited historian Medication Reconciliation Allergies: Coded Allergies: Sulfa (Sulfonamide Antibiotics) (Verified Allergy, Severe, ANAPHYLACTIC SHOCK, 10/10/24) capsaicin (Verified Allergy, Severe, BLISTERS ERYTHEMA RASH, 10/10/24) ketoprofen (Verified Allergy, Severe, ANAPHALAXIS, 10/10/24) cefotaxime (Verified Allergy, Intermediate, WHEAL AND FARE RXN, RED WELTS ON LIMBS AND FACE, 10/10/24) Penicillins (Verified Allergy, Mild, RASH HIVES, 10/10/24) Tetracyclines (Verified Allergy, Mild, HIVES, 10/10/24) doxycycline (Verified Allergy, Mild, RASH, 10/10/24) gentamicin (Verified Allergy, Mild, RASH, 10/10/24) heparin (porcine) (Verified Allergy, Mild, HIVES, 10/10/24) sulfacetamide (Verified Allergy, Mild, HIVES, 10/10/24) tobramycin (Verified Allergy, Mild, RASH, 10/10/24) Aminoglycosides (Unverified Allergy, Unknown, 10/10/24) LISTED ON HER MEDICAL RECORDS BY [facility], OR Pyrimidine Analogues (Unverified Allergy, Unknown, 10/10/24) LISTED ON HER MEDICAL RECORDS BY [facility], OR ciprofloxacin (Unverified Allergy, Unknown, 10/10/24) LISTED ON HER MEDICAL RECORDS BY [facility], OR zolpidem (Verified Adverse Reaction, Severe, SLEEPWALKING, INAPPROPRIATE BEHAVIOR, 10/10/24) minocycline (Verified Adverse Reaction, Intermediate, NAUSEA AND VOMITING, 10/10/24) promethazine (Verified Adverse Reaction, Mild, RASH, 10/10/24) Scheduled Albuterol Sulfate (Albuterol Sulfate), Unknown Dose NEB Q6H, (Reported) Atorvastatin Calcium (Lipitor), 1 TABLET PO HS, (Reported) Clopidogrel Bisulfate (Plavix), 75 MG PO DAILY, (Reported) Fexofenadine* (Angelica*), Unknown Dose PO DAILY, (Reported) Fluticasone/Vilanterol (Breo Ellipta 100-25 Mcg INH), 1 PUFFS INH DAILY Levothyroxine Sodium (Synthroid), 1 TAB PO DAILY, (Reported) Lisinopril (Lisinopril), 1 TAB PO DAILY, (Reported) Metformin Hcl* (Glucophage*), 1 TAB PO DAILY, (Reported) Omeprazole (Prilosec), 20 MG PO DAILY, (Reported) Trazodone HCl (Trazodone HCl), 1 TAB PO HS, (Reported) Past Medical History Past Medical History: Multiple Sclerosis, *RENAL/*, Chronic Back Pain Past Surgical History: noncontributory Alcohol Use: None Drug Use: none Lives with: Family Lives In: Home Review of Systems Respiratory: Reports: shortness of breath Cardiovascular: Reports: chest pain, diaphoresis, lightheadedness Gastrointestinal: Denies: abdominal pain Physical Exam Vital Signs: Heart Rate: 64, Respiratory Rate: 22, BP: 120/76, Pulse Oximetry: 90, Weight: 54.000 Oxygen Flow Rate: 0 Physical Exam General: This is an anxious appearing older female who is clutching her chest and crying out in pain HEENT: Atraumatic, oropharynx is moist Heart: Regular rate and rhythm, normal-appearing peripheral perfusion Lungs: Clear breath sounds bilateral, mild tachypnea Abdomen: Soft, nondistended, nontender including in the epigastric region Extremities: Warm and well-perfused, trace edema in the ankles Neuro: Alert and oriented to self and location, has trouble with history questions Psychiatric: Anxious Progress Results/Orders Results/Orders Orders - SYLVIA SHARIF MD Chest,Single View (01/04/25 07:55) Monitor (01/04/25 07:45) Saline Lock (01/04/25 07:45) Oxygen (01/04/25 07:45) Hs Troponin I W Calculations (01/04/25 09:45) Hs Troponin I W Calculations (01/04/25 10:45) Nitroglycerin Sublingual Tab (Nitrostat (01/04/25 07:55) Page Hospitalist (01/04/25 08:09) Completed Orders - SYLVIA SHARIF MD Chest,Single View (01/04/25 07:55) Cbc/Diff (01/04/25 07:45) PBNP (01/04/25 07:45) Electrocardiogram (01/04/25 07:45) Hs Troponin I W Calculations (01/04/25 07:45) CMP (01/04/25 07:45) PTT (01/04/25 07:45) Pt Inr (01/04/25 07:45) Morphine 4mg/Ml Inj. (Morphine Inj.) (01/04/25 07:55) Ondansetron Inj. (Zofran 4mg/2ml Vial) (01/04/25 07:55) Lidocaine 1% 30ml Vial (Xylocaine 1% Via (01/04/25 07:56) Midazolam 1 Mg/Ml 2ml Inj. (Versed 1 Mg/ (01/04/25 07:56) Fentanyl/Pf (Fentanyl 0.05 Mg/Ml Syringe (01/04/25 07:56) Iohexol 350mg/Ml 100ml (Omnipaque 350mg/ (01/04/25 07:56) Heparin 1,000 Units/Ns 500ml (Heparin 1, (01/04/25 07:56) Vital Signs 01/04/25 01/04/25 01/04/25 07:46 07:56 07:58 Pulse 64 Resp 22 22 B/P (MAP) 120/76 Pulse Ox 90 95 O2 Delivery Nasal Cannula* O2 Flow Rate 0 2 FiO2 28 Laboratory Tests Test 01/04/25 07:53 White Blood Count 6.6 Red Blood Count 3.91 L Hemoglobin 12.2 Hematocrit 36.4 Mean Corpuscular Volume 93.1 Mean Corpuscular Hemoglobin 31.3 H Mean Corpuscular Hemoglobin Concent 33.6 Red Cell Distribution Width 15.9 H Platelet Count 342 Mean Platelet Volume 7.9 Neutrophils (%) (Auto) 61.9 Lymphocytes (%) (Auto) 26.3 Monocytes (%) (Auto) 8.9 Eosinophils (%) (Auto) 1.8 Basophils (%) (Auto) 1.1 H Neutrophils # (Auto) 4.1 Lymphocytes # (Auto) 1.7 Monocytes # (Auto) 0.6 Eosinophils # (Auto) 0.1 Basophils # (Auto) 0.1 CBC Comment Prothrombin Time 9.8 INR International Normalized Ratio 1.0 Activated Partial Thromboplast Time 24 Coagulation Comments Sodium Level 143 Potassium Level 4.1 Chloride Level 105 Carbon Dioxide Level 27.6 Anion Gap 10 Blood Urea Nitrogen 32 H Creatinine 1.38 H Estimated GFR/1.73 m2 37 BUN/Creatinine Ratio 23.2 H Glucose Level 136 H Hemoglobin A1c 6.0 Calcium Level 11.1 H Total Bilirubin 0.3 Aspartate Amino Transf (AST/SGOT) 21 Alanine Aminotransferase (ALT/SGPT) 13 Alkaline Phosphatase 80 Troponin I High Sensitivity 1331 *H Pro-B-Type Natriuretic Peptide 35005 H Total Protein 7.2 Albumin 3.6 Globulin 3.6 Albumin/Globulin Ratio 1.0 L Chemistry Comments EKG/XRAY/CT/US/VASC/MRI EKG : Additional Comment I personally interpreted the EKG and this shows: Mild ST-elevation in the inferior leads, with T-wave inversion and mild depression in the anterior leads, appears consistent with possible STEMI Consults/PCP Consults/PCP : Additional Comment Consult: Cardiology was emergently consulted for possible STEMI. They will evaluate the patient Medical Decision Making Additional Information The patient presents with chest pain and an EKG concerning for STEMI. A STEMI alert was immediately called, and I spoke to Cardiology for intervention. The patient does have a reported allergy heparin and so heparin was not started in the ER. She already received aspirin. She was given morphine after which her blood pressure dropped, and so she was given IV fluids which improved her blood pressure. She was taken emergently for cardiac catheterization. Departure Impression: Primary Impression: STEMI (ST elevation myocardial infarction) Referrals: NO PRIMARY CARE PROVIDER (PCP) Signature Scribe Signature: na Attestation: SYLVIA Euceda MD Jan 04, 2025 07:52
[2025-01-04] MEDS: ondansetron/PF 4mg/2ml inj IV ONE (07:55)
[2025-01-04] MEDS: morphine 4 MG/ML inj SYRINge IV ONE (07:56)
[2025-01-04] MEDS ORDERED: fentaNYL/PF 50MCG/1 ML 2ML syringe ONE ×2 (07:56→16:50)
[2025-01-04] MEDS ORDERED: midazolam 1 mg/ML 2ml injection ONE ×2 (07:56→16:50)
[2025-01-04] MEDS ORDERED: LIDOcaine 1% 30ml preserv. free vial ONE ×2 (07:56→16:50)
[2025-01-04 07:59] LABS: MEAN PLATELET VOLUME 7.9 FL (7.4-10.4); RED CELL DISTRIBUTION WIDTH 15.9 % (11.5-14.5)
[2025-01-04] MEDS ORDERED: heparin 10,000 units/1 ML INJ ONE (08:00)
[2025-01-04 08:12] LABS: INR 1.0 INR
[2025-01-04 08:14] LABS: CREATININE 1.38 MG/DL (0.40-0.90); TOTAL CARBON DIOXIDE 27.6 MMOL/L (24-32); eCRCL 25 ML/MIN; eGFR 37 ML/MIN
[2025-01-04 08:22] LABS: PRO BRAIN NATRIURETIC PEPTIDE 11710 PG/ML (0-450)
[2025-01-04 08:23] LABS: APTT 24 SECONDS (22-32)
--- NOTE | 2025-01-04 08:33 | RADIOLOGY REPORT ---
CLINICAL INFORMATION: Chest pain. TECHNIQUE: Single AP portable chest radiograph was obtained. COMPARISON: DI CHEST,SINGLE VIEW on DOS: 10/11/24, CT CTA CHEST AORTA W/ IV CONTRAST on DOS: 10/06/24, DI CHEST,SINGLE VIEW on DOS: 10/06/24 FINDINGS: Lungs: Clear. Cardiac: Heart size is within normal limits. Pulmonary vasculature: Unremarkable. Mediastinum/cristina: Unremarkable. Bones: No acute osseous abnormality identified. Other: Multiple leads overlie the chest. IMPRESSION: No evidence of acute disease in the chest.
[2025-01-04] MEDS ORDERED: hydrocortisone sod succ/PF 100mg/2ml inj. ONE (08:38)
[2025-01-04] MEDS ORDERED: iohexol 350 MG/ML 50ML vial IV ONE ×2 (08:48→17:57)
[2025-01-04] MEDS ORDERED: clopidogrel 300mg tablet ONE (09:01)
[2025-01-04] MEDS ORDERED: HYDROcodone/acetaminophen 5mg/325mg tablet PO PRN ×2 (10:00→18:45)
[2025-01-04] MEDS: HYDROcodone/acetaminophen 10/325mg tab PO PRN ×2 (10:24→20:36)
[2025-01-04] MEDS ORDERED: magnesium sulf-water 2g/50mL 50 ML IV PRN (10:45)
[2025-01-04] MEDS ORDERED: magnesium Cl slow-release 64mg tablet PO PRN (10:45)
[2025-01-04] MEDS ORDERED: mag hydrox/Alum hydrox/simeth 30ml oral suspension PO PRN (10:45)
[2025-01-04] MEDS ORDERED: ondansetron/PF 4mg/2ml inj IV PRN ×2 (10:45→18:45)
[2025-01-04] MEDS ORDERED: magnesium hydroxide 30ml (MOM) UD suspension PO PRN (10:45)
[2025-01-04] MEDS ORDERED: magnesium sulf-water 4G/100mL 100 ML IV PRN (10:45)
[2025-01-04] MEDS ORDERED: potassium Cl 20 mEq SR tablet PO PRN ×2 (10:45)
[2025-01-04] MEDS ORDERED: potassium Cl 40MEQ/1/2NS 520ml 520 ML IV PRN (10:45)
[2025-01-04] MEDS: enoxaparin 30mg/0.3ml syringe IV ONE ×2 (13:00→14:48)
[2025-01-04] MEDS ORDERED: enoxaparin 60mg/0.6ml syringe SUBCUT SCH (13:00)
--- NOTE | 2025-01-04 16:40 | CONSULTATION REPORT ---
History of Present Illness Providers to CC CC: CHEVY CHAPA MD ~ Reason for Admit\Admit Dx: Cardiology consultation Refering MD: J CARLOS History of Present Illness Patient presented with chest pain. Found to have an inferior STEMI. Taken emergently to the cardiac catheterization lab with Dr. Chapa. Found to have multivessel disease and was recommended for surgery. Patient has history of heparin allergy with hives, multiple sclerosis, borderline diabetes, hypotension, hyperlipidemia, chronic kidney disease, hypothyroidism, breast cancer in remission, COPD, left carpal tunnel syndrome status post release. She states about four years ago they thought she had an aortic aneurysm however when they opened her chest they found her aorta to be fine and they closed her chest with no intervention. She had a recent admission and had a cholecystectomy and common bile duct stent. States that last night she was having chest pain. He thought it was secondary to acid reflux and took antacids. This morning when she woke up her pain was worse prompting her to call 911. She lives with her sister nearby. Has some memory issues. Allergies: Coded Allergies: Sulfa (Sulfonamide Antibiotics) (Verified Allergy, Severe, ANAPHYLACTIC SHOCK, 10/10/24) capsaicin (Verified Allergy, Severe, BLISTERS ERYTHEMA RASH, 10/10/24) ketoprofen (Verified Allergy, Severe, ANAPHALAXIS, 10/10/24) cefotaxime (Verified Allergy, Intermediate, WHEAL AND FARE RXN, RED WELTS ON LIMBS AND FACE, 10/10/24) Penicillins (Verified Allergy, Mild, RASH HIVES, 10/10/24) Tetracyclines (Verified Allergy, Mild, HIVES, 10/10/24) doxycycline (Verified Allergy, Mild, RASH, 10/10/24) gentamicin (Verified Allergy, Mild, RASH, 10/10/24) heparin (porcine) (Verified Allergy, Mild, HIVES, 10/10/24) sulfacetamide (Verified Allergy, Mild, HIVES, 10/10/24) tobramycin (Verified Allergy, Mild, RASH, 10/10/24) Aminoglycosides (Unverified Allergy, Unknown, 10/10/24) LISTED ON HER MEDICAL RECORDS BY [facility], OR Pyrimidine Analogues (Unverified Allergy, Unknown, 10/10/24) LISTED ON HER MEDICAL RECORDS BY [facility], OR ciprofloxacin (Unverified Allergy, Unknown, 10/10/24) LISTED ON HER MEDICAL RECORDS BY [facility], OR zolpidem (Verified Adverse Reaction, Severe, SLEEPWALKING, INAPPROPRIATE BEHAVIOR, 10/10/24) minocycline (Verified Adverse Reaction, Intermediate, NAUSEA AND VOMITING, 10/10/24) promethazine (Verified Adverse Reaction, Mild, RASH, 10/10/24) Home Medications Home Medications Active Breo Ellipta 100-25 Mcg INH (Fluticasone/Vilanterol) 100 Mcg-25 Mcg/Dose Aer.pow.ba 1 Puffs INH DAILY 30 Days Reported Trazodone HCl 50 Mg Tablet 1 Tab PO HS 30 Days Prilosec (Omeprazole) 40 Mg Capsule 20 Mg PO DAILY 30 Days Glucophage* (Metformin HCl) 500 Mg Tablet 1 Tab PO DAILY 30 Days Lisinopril 20 Mg Tablet 1 Tab PO DAILY 30 Days Synthroid (Levothyroxine Sodium) 125 Mcg Tablet 1 Tab PO DAILY 30 Days Angelica* (Fexofenadine HCl) Unknown Strength Tablet Unknown Dose PO DAILY 30 Days Plavix (Clopidogrel Bisulfate) 75 Mg Tablet 75 Mg PO DAILY Do not stop medication unless instructed by prescriber. Lipitor (Atorvastatin Calcium) 40 Mg Tablet 1 Tablet PO HS Albuterol Sulfate (Albuterol) Unknown Strength Vial.neb Unknown Dose NEB Q6H 12 Days Past Medical History Medical History Comment Multiple sclerosis Chronic kidney disease Hypothyroidism Breast cancer in remission COPD Tobacco use disorder Borderline diabetes Hypothyroidism Gallstones Past Surgical History Surgical History Comment Cholecystectomy with common bile duct stent by GI last admission Exploratory open chest surgery as described above Hysterectomy Left carpal tunnel release Past Social History Social History Comment Smokes one pack per day. Denies alcohol or recreational drug use. Physical Exam Last Vital Signs Recorded: RN Vital Signs have been reviewed: Yes, Heart Rate: 72, Respiratory Rate: 16, BP: 141/71, Pulse Oximetry: 89, Weight: 54.000 Physical Exam General: Awake, alert. No apparent distress Neck: Supple. Normal range of motion. No JVD Respiratory: Lungs are clear to auscultation bilaterally. No respiratory distress. Chest: Normal shape and size. No accessory muscle use. Cardiovascular: Regular rate and rhythm. S1-S2. III/ R/LSB. Gastrointestinal: Abdomen is soft. Nontender to palpation. Bowel sounds present. Extremities: No lower extremity edema, cyanosis or clubbing. Neurologic: Nonfocal. Moving all extremities. Speech clear. Psychiatric: Intermittently frustrated. Skin: Normal color. Warm and dry. Review of Systems ROS Patient complains of chest pain as noted in HPI. Otherwise, does have some shortness for breath. Intermittent dizziness. Was asked, but otherwise denies review of systems. Results Diagram Lab Result Diagram: 01/04/25 0753 01/04/25 0753 Assessment/Plan Additional Plan Patient presented with chest pain. Found to have inferior STEMI. The following is her problem list: Inferior STEMI Cardiac catheterization with occluded LAD, severe disease of the circumflex (per verbal report) Echocardiogram with apical aneurysm present. Evaluated by cardiac surgery who recommended PCI of the OM --Offered PCI vs. medical management. risks, benefits and alternatives of cardiac catheterization (repeat) reviewed in detail with both patient and her sister. She is aware that the procedure is high-risk given circ and LAD involvement. Risks of , disability reviewed in detail. Other risks including allergy, bleeding, infection, vascular site reactions, kidney disease were reviewed. They had the opportunity to ask questions. Patient is willing to proceed. HFrEF TTE demonstrates an LVEF of 40% reducing to 5% at the base (apical aneurysm present) --up titrate guideline directed medical therapy as blood pressure allows. Aortic stenosis, mild TTE September 2024 shows mild . Recommend outpatient follow up. Tobacco use disorder --encouraged to quit Borderline diabetes mellitus Hemoglobin A1c 6.0 --hospitalist management Chronic kidney disease --monitoring. Case discussed with Dr. José Miguel Chapa. In agreement with the above plan. Supervising MD Supervising Physician: JOHANNY Urbina NP Jan 04, 2025 16:40
--- NOTE | 2025-01-04 17:15 | HISTORY AND PHYSICAL-Residence ---
History & Physical Providers to CC Resident Creating Document: UMBERTO COMER, RES ~ History of Present Illness Primary Medical Doctor: J CARLOS Reason for Admit\Complaint: Chest pain History of Present Illness A 74-year-old female with a history of chronic kidney disease, type 2 diabetes mellitus, hypothyroidism, hyperlipidemia, hypertension, COPD, and a remote history of aortic surgery in 1996 (records note an exploratory sternotomy for suspected aortic aneurysm, which was not confirmed intraoperatively). She is a lifelong smoker, averaging approximately one pack per day. She presented to the Emergency Department with retrosternal chest pain that began the prior evening, waking her from sleep. She described the pain as pressure-like, 8/10 in intensity, without clear exacerbating or relieving factors. Nitroglycerin provided no relief. She reported associated nausea but denied vomiting or diaphoresis. Initially, she expressed a desire to leave the hospital, but with encouragement from her sister Traci (supportive advocate), she agreed to remain for further evaluation. In the ED, EKG showed no acute ischemic changes, but troponin was elevated and uptrending. CTA chest ruled out pulmonary embolism, aortic dissection, and aneurysm. Given clinical concern for ACS, she was admitted to the telemetry unit. She has a documented heparin allergy (prior episode of hives and shortness of breath). Angiomax was not available overnight, so she was started on Aggrastat drip, aspirin, atorvastatin, carvedilol, and lisinopril. She subsequently underwent diagnostic cardiac catheterization after a STEMI alert was called. Findings included chronic total occlusion of the LAD and significant LCx disease, for which PCI is being planned today. Cardiothoracic surgery (Dr. Jaeger) was consulted and recommended no surgical intervention at this time. Periprocedurally, she was loaded with aspirin and clopidogrel, and due to uncertainty about her heparin allergy, she was transitioned to enoxaparin 1 mg/kg BID (after an initial 10 mg IV dose). Of note, she has a prior history of behavioral disturbances (June 2024 admission at [facility] for aspiration pneumonia/sepsis), where she was combative, refused therapy and intake, and required restraints. Currently, she reports ongoing chest pain following her initial cath procedure and is awaiting repeat PCI for LCx stenting. Allergies: Coded Allergies: Sulfa (Sulfonamide Antibiotics) (Verified Allergy, Severe, ANAPHYLACTIC SHOCK, 10/10/24) capsaicin (Verified Allergy, Severe, BLISTERS ERYTHEMA RASH, 10/10/24) ketoprofen (Verified Allergy, Severe, ANAPHALAXIS, 10/10/24) cefotaxime (Verified Allergy, Intermediate, WHEAL AND FARE RXN, RED WELTS ON LIMBS AND FACE, 10/10/24) Penicillins (Verified Allergy, Mild, RASH HIVES, 10/10/24) Tetracyclines (Verified Allergy, Mild, HIVES, 10/10/24) doxycycline (Verified Allergy, Mild, RASH, 10/10/24) gentamicin (Verified Allergy, Mild, RASH, 10/10/24) heparin (porcine) (Verified Allergy, Mild, HIVES, 10/10/24) sulfacetamide (Verified Allergy, Mild, HIVES, 10/10/24) tobramycin (Verified Allergy, Mild, RASH, 10/10/24) Aminoglycosides (Unverified Allergy, Unknown, 10/10/24) LISTED ON HER MEDICAL RECORDS BY [facility], OR Pyrimidine Analogues (Unverified Allergy, Unknown, 10/10/24) LISTED ON HER MEDICAL RECORDS BY [facility], OR ciprofloxacin (Unverified Allergy, Unknown, 10/10/24) LISTED ON HER MEDICAL RECORDS BY [facility], OR zolpidem (Verified Adverse Reaction, Severe, SLEEPWALKING, INAPPROPRIATE BEHAVIOR, 10/10/24) minocycline (Verified Adverse Reaction, Intermediate, NAUSEA AND VOMITING, 10/10/24) promethazine (Verified Adverse Reaction, Mild, RASH, 10/10/24) Home Medications Home Medications Active Breo Ellipta 100-25 Mcg INH (Fluticasone/Vilanterol) 100 Mcg-25 Mcg/Dose Aer.pow.ba 1 Puffs INH DAILY 30 Days Reported Trazodone HCl 50 Mg Tablet 1 Tab PO HS 30 Days Prilosec (Omeprazole) 40 Mg Capsule 20 Mg PO DAILY 30 Days Glucophage* (Metformin HCl) 500 Mg Tablet 1 Tab PO DAILY 30 Days Lisinopril 20 Mg Tablet 1 Tab PO DAILY 30 Days Synthroid (Levothyroxine Sodium) 125 Mcg Tablet 1 Tab PO DAILY 30 Days Angelica* (Fexofenadine HCl) Unknown Strength Tablet Unknown Dose PO DAILY 30 Days Plavix (Clopidogrel Bisulfate) 75 Mg Tablet 75 Mg PO DAILY Do not stop medication unless instructed by prescriber. Lipitor (Atorvastatin Calcium) 40 Mg Tablet 1 Tablet PO HS Albuterol Sulfate (Albuterol) Unknown Strength Vial.neb Unknown Dose NEB Q6H 12 Days Past Medical History Past Medical History Multiple sclerosis Chronic kidney disease Hypothyroidism Breast cancer in remission COPD Tobacco use disorder Borderline diabetes Hypothyroidism Gallstones Past Surgical History Surgical History Comment Cholecystectomy with common bile duct stent by GI last admission Exploratory open chest surgery as described above Hysterectomy Left carpal tunnel release Past Social History Social History Comment Admits to smoking of about 1 pack of cigarettes since the past 20-30 years Denied alcohol and illicit use of drugs Lives alone, with her sister next door Alcohol Use: None Drug Use: None Lives with: Family Lives In: Home ROS ROS Constitutional: No fever, chills, dizziness, weight gain or loss Eyes: No pain, erythema, discharge, blurring of vision ENT: No sore throat, epistaxis, tinnitus Cardiovascular: reports chest pain, Chest pressure, chest discomfort, palpitations. No syncope, lower extremity edema, paroxysmal nocturnal dyspnea Respiratory: Shortness of breath and cough present, No hemoptysis Gastrointestinal: Normal appetite. No nausea, vomiting, diarrhea, constipation, hematemesis, abdominal pain, bloating, melena or fresh blood Musculoskeletal: No edema. Integumentary: No change in skin, hair, nails. No swelling, bruising, abrasions Neurologic: No headache, neck pain, numbness or tingling of the extremities, weakness Psychiatric: No delusions, depression, loss of interest in normal activity or change in sleep pattern, hallucinations, suicidal ideations Endocrine: No fatigue, weakness, polydipsia, polyuria, change in appetite, heat or cold intolerance, sweating, dry skin Hematological: No bleeding, petechiae, bruising Allergies: No asthma or urticaria Respiratory: Reports: shortness of breath Cardiovascular: Reports: chest pain, diaphoresis, lightheadedness Gastrointestinal: Denies: abdominal pain Exam Vitals: Vital Signs Date Time Temp Pulse Resp B/P (MAP) Pulse Ox O2 Delivery O2 Flow Rate FiO2 01/04/25 16:20 16 01/04/25 15:00 98.1 83 145/84 (104) 97 Nasal Cannula 2.0 01/04/25 07:58 28 General: Awake , alert, and oriented x4, in apparent distress HEENT: Atraumatic, normocephalic, EOMI, anicteric sclera ; pink conjunctiva Neck: Trachea midline. Supple, full range of motion, no JVD Cardiac: Regular rhythm, regular rate with no murmurs all over the precordium, a linear incision present on the chest Respiratory: Equal breath sounds bilaterally, no tachypnea, no wheezing ,rub or rales, Chest wall is symmetric and without deformity. Gastrointestinal: Abdomen symmetric, non-distended, soft, non-tender, normal bowel sounds x4 quadrant, normoactive, no hepatosplenomegaly Musculoskeletal: No pedal edema, no cyanosis Neurological: Speech is clear, alert, and oriented x 4. No motor or sensory deficit, deep tendon reflexes normal, cerebellar intact. Cranial nerves II-XII intact. Skin: Warm and dry Diagnostic Data Last Recorded Lab Results: 01/04/25 0753 01/04/25 0753 Diagnostic Data: Laboratory Tests Test 01/04/25 07:53 Prothrombin Time 9.8 SECONDS (9.0-12.0) INR International Normalized Ratio 1.0 INR Activated Partial Thromboplast Time 24 SECONDS (22-32) Coagulation Comments Advance Care Planning Advanced Care plannin - 30 Minutes Additional Plan 1. Acute Coronary Syndrome (STEMI) New onset heart failure with severely reduced ejection fraction, secondary to obstructive CAD Heart score 5 Initial presentation with retrosternal chest pain, elevated troponin, nondiagnostic EKG. Cath findings: LAD chronic total occlusion, LCx lesion pending PCI. Pending final report Preliminary echocardiogram: Normal LV size and wall thickness. Overall systolic function is moderately to severely reduced. 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 LVEF appears to be about 40% at the base, decreasing to less than 5% at the apex. Management: Continue Aspirin 81 mg daily + Clopidogrel 75 mg daily per Cardiology Continue Atorvastatin 40 mg nightly Continue Carvedilol 3.125 mg BID Lisinopril 5 mg daily as tolerated after med rec Enoxaparin 1 mg/kg BID for anticoagulation given reported heparin allergy; monitor closely for reaction. Pain control PRN with morphine Repeat PCI to LCx planned today, per Dr. MANOLO Chapa Monitor on telemetry Cardiology following; CT surgery consulted, no surgical intervention recommended 2. Heparin Allergy (uncertain) Reported hives and shortness of breath in the past with heparin, unclear severity or confirmation Currently on enoxaparin with no immediate adverse reaction Continue to monitor closely for hypersensitivity or respiratory symptoms Consider allergy/immunology referral after stabilization for confirmatory testing 3. Chronic Kidney Disease with possible ESPERANZA, ATN (secondary to contrast) Baseline CKD, now with concern for renal tubular stasis and possible ESPERANZA Plan: Strict I/O monitoring Follow BMP daily Urine lytes pending Avoid nephrotoxic agents, minimize contrast exposure (PCI to be cautious) Avoiding IV fluids for now to prevent volume overload 4. Hypertension / Hyperlipidemia Resume and continue home antihypertensives, titrate as tolerated in ACS setting Continue atorvastatin Check lipid panel 5. Hypothyroidism Continue levothyroxine Recheck TSH 6. Diabetes / Prediabetes Previously labeled prediabetic, A1C 6.1 Monitor glucose with sliding scale insulin if needed Lifestyle counseling deferred until post-acute period 7. COPD & Tobacco Dependence Lifelong smoker, 1 PPD Currently interested in cessation Ongoing counseling being provided Continue home inhalers if used 8. Neuropsychiatric / Behavioral History Prior combative behavior during hospitalization Monitor closely for delirium, agitation, or sedation, especially donald- procedurally Code Status: Full Code. DVT prophylaxis: covered with therapeutic anticoagulation (enoxaparin). Family at bedside, particularly sister Traci (primary advocate/contact)- contact information [phone] Analgesia/ Sedation: Morphine Line/tubes: P IV Nutrition: NPO for now PT: Ordered Prognosis: Guarded Disposition: Cardiac catheterization today Umberto Comer MD Internal Medicine Resident, PGY-2 Patient is seen and examined agree with the above Date of Service: Jan 04, 2025 Billing Provider: KIERA BOYKIN MD Common Visit Codes: [id number] INP/OBS CARE (HIGH) UMBERTO COMER, RES Jan 04, 2025 17:15 KIERA BOYKIN MD Jan 07, 2025 08:01
[2025-01-04] MEDS ORDERED: phenylephrine 10mg/ml inj. ONE (17:27)
[2025-01-04] MEDS ORDERED: heparin 1,000unit/ml 10ml vial 10 ML ONE (17:43)
[2025-01-04] MEDS: PERFLUTREN PROTEIN-A MICROSPHR (Optison) 0.22 MG/ML 3ML VIAL IV ONE (18:00)
--- NOTE | 2025-01-04 18:34 | CARDIOLOGY REPORT ---
APPROVED REPORT EXAM: Comprehensive 2D, Doppler, and color-flow Echocardiogram. Patient Location: 3[address] Blood Pressure: 141/71 mmHg Heart Rate: 72 bpm Rhythm: SINUS Indications MYOCARDIAL INFARCTION CAD S/P STEMI CHEST PAIN Gelatin Powder Mixer: Olu Chapa MD (consult) Previous echo: 10/07/24 [facility] (EF 70%, GABI 1.81 cmsq, pkV 2.88 m/s, pk/mn grad 33/16 mmHg, trace MR, trace TR) 2D Dimensions RVDd 2.5 cm LA Diam 4.1 cm LVOT Diameter 1.80 (1.8-2.4cm) Ao Asc Diam. 3.00 cm M-Mode Dimensions Left Atrium(MM) 3.19 (2.5-4.0cm) Aortic Root 3.30 (2.2-3.7cm) Aortic Cusp Exc 0.66 (1.5-2.0cm) Biplane 2D LV Volumes LVEDv A2C 117.20 mL LVESv A2C 74.37 mL LVEDv A4C 67.35 mL LVESv A4C 30.90 mL LVEF(%) 47.72 (>50%) Biplane 2D LA Volumes LA ESV Index 26.54 mL/m2 Aortic Valve AoV Peak Tong. 321.3 cm/s AoV VTI 51.1 cm AO Peak GR. 30.0 mmHg AO Mean GR. 19 mmHg LVOT VTI 17.62 cm LVOT Peak Tong. 87.8 cm/s GABI (VTI) 1.63 cm2 Mitral Valve MV E Velocity 65.8 cm/s MV Peak Gr. 11 mmHg MV DECEL TIME 308 ms MV A Velocity 138.6 cm/s MV Mean Gr. 2 mmHg MV PHT 116 ms E/A Ratio 0.5 MVA (PHT) 3.74 cm2 MV VMax 164.9 cm/s MV VMean 71.6 cm/s MV VTI 34.1 cm TDI Medial E' P. V 5.88 cm/s E/Medial E' 11.2 Tricuspid Valve TR P. Velocity 227 cm/s TR Peak Gr. 21 mmHg Pulmonary Vein S1 Velocity 60.1 cm/s D2 Velocity 35.4 cm/s PVa Velocity 36.4 cm/s PVa Duration 76 msec LEFT VENTRICLE Normal LV size and wall thickness. Overall systolic function is moderately to severely reduced. 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 LVEF appears to be about 40% at the base, decreasing to less than 5% at the apex. RIGHT VENTRICLE RV is normal size and function. ATRIA The left atrium size is normal. AORTIC VALVE Trileaflet AV appears heavily calcified with significant stenosis demonstrated by reduced excursion and increased transvalvular and ascending aorta turbulance. GABI: 1.67 cmsq; Pkv: 2.74 m/sec; Gradients: 30 / 19 mmHG. Trivial insufficiency. MITRAL VALVE Mild MV annular calcification without stenosis. Mild regurgitation. TRICUSPID VALVE TV appears structurally normal with mild regurgitation. PULMONIC VALVE Normal PV without stenosis, physiologic insufficiency. GREAT VESSELS Aortic root is normal in size. Ascending aorta is normal in size. PERICARDIUM Normal pericardium. No effusion. Conclusion Normal LV size and wall thickness. Overall systolic function is moderately to severely reduced. 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 LVEF appears to be about 40% at the base, decreasing to less than 5% at the apex. RV is normal size and function. The left atrium size is normal. Trileaflet AV appears heavily calcified with significant stenosis demonstrated by reduced excursion and increased transvalvular and ascending aorta turbulance. GABI: 1.67 cmsq; Pkv: 2.74 m/sec; Gradients: 30 / 19 mmHG. Trivial insufficiency. Mild MV annular calcification without stenosis. Mild regurgitation. TV appears structurally normal with mild regurgitation. Normal pericardium. No effusion.
[2025-01-04] MEDS ORDERED: OXAZEpam 15mg capsule PO PRN (18:45)
[2025-01-04] MEDS: docusate sod 100mg capsule PO SCH (20:00)
[2025-01-04] MEDS: K and/or MAG REPLACEMENT MC SCH (20:00)
[2025-01-04] MEDS: enoxaparin 60mg/0.6ml syringe SUBCUT SCH (20:38)
[2025-01-05] VITALS (13 sets, daily range): BP systolic 88–118; BP diastolic 48–63; PULSE 60–73; RESP 12–18; TEMP 97.2–98.8; O2SAT 95–99
[2025-01-05 06:45] LABS: MEAN PLATELET VOLUME 8.3 FL (7.4-10.4); RED CELL DISTRIBUTION WIDTH 16.1 % (11.5-14.5)
[2025-01-05 07:53] LABS: CHOL/HDL RATIO 2.1 (0.00-4.99); CREATININE 1.13 MG/DL (0.40-0.90); LDL CHOLESTEROL 56 MG/DL (50-100); TOTAL CARBON DIOXIDE 24.7 MMOL/L (24-32); eCRCL 31 ML/MIN; eGFR 47 ML/MIN
[2025-01-05] MEDS: aspirin 81mg, enteric-coated 1 TAB TABLET.DR PO SCH (08:26)
[2025-01-05] MEDS: metoprolol succinate 25mg (24-HOUR) SR. Tablet PO SCH (09:15)
--- NOTE | 2025-01-05 09:47 | PROGRESS NOTE ---
Progress Note Cardiology Providers to CC ~ Subjective Subjective Patient underwent PCI yesterday of the OM after being declined for surgical intervention. She tolerated well. Resting comfortably in bed. Had nausea/vomiting this morning after eating too quickly. No current complaints. Objective Result Diagram: 01/05/2560501/05/25 06 Objective General: Awake, alert. NAD Respiratory: Lungs are clear to auscultation bilaterally. No respiratory distress. Chest: Normal shape and size. No accessory muscle use. Cardiovascular: Regular rate and rhythm. S1-S2. No murmur, gallop, rub. Gastrointestinal: Abdomen is soft. Nontender to palpation. Bowel sounds present. Extremities: No lower extremity edema, cyanosis or clubbing. Right femoral cath site with dressing clean dry and intact. Minimal ecchymosis. No hematoma. Dorsalis pedis pulses plus two Neurologic: Moving all extrimities. Speech clear. Psychiatric: Normal mood and affect. Skin: Normal color. Warm and dry. Coagulation Studies Laboratory Tests Test 01/04/25 07:53 Prothrombin Time 9.8 SECONDS (9.0-12.0) INR International Normalized Ratio 1.0 INR Activated Partial Thromboplast Time 24 SECONDS (22-32) Coagulation Comments Problem\Assessment\Plan Additional Plan Patient presented with chest pain. Found to have inferior STEMI. The following is her problem list: Inferior STEMI Cardiac catheterization with occluded LAD, severe disease of the circumflex (per verbal report) Echocardiogram with apical aneurysm present. Evaluated by cardiac surgery who recommended PCI of the OM --01/05/25: Underwent PCI of the left circumflex system yesterday with Dr. Chapa. Tolerated well. ---Plavix 75 mg daily for 12 months ---aspirin 81 mg daily for life ---high intensity statin to keep LDL less than 55 ---start beta-karen HFrEF TTE demonstrates an LVEF of 40% reducing to 5% at the base (apical aneurysm present) --start lisinopril 2.5 mg daily --continue metoprolol succinate 25 mg daily --unable to tolerate spironolactone due to low blood pressure Aortic stenosis, mild TTE September 2024 shows mild . Recommend outpatient follow up. Tobacco use disorder --encouraged to quit Borderline diabetes mellitus Hemoglobin A1c 6.0 --hospitalist management Chronic kidney disease --monitoring. Case discussed with Dr. José Miguel Chapa. In agreement with the above plan. Supervising Physician: JOHANNY Urbina NP Jan 05, 2025 09:47
[2025-01-05 11:59] LABS: LEUKOCYTE ESTERASE ,URINE NEGATIVE (Neg); NITRITES, URINE NEGATIVE (Neg); OCCULT BLOOD,URINE TRACE-INTACT (Neg)
[2025-01-05 12:03] LABS: UA COLLECTION TYPE CLN CATCH MIDSTREAM
[2025-01-05 12:07] LABS: SQUAMOUS EPITHELIAL CELL,UR FEW /LPF (FEW)
[2025-01-05 12:23] LABS: OSMOLALITY UA 854 MOSM/K (50-1400)
[2025-01-05 12:30] LABS: UA EOSINOPHILS FEW EOS /HPF
--- NOTE | 2025-01-05 18:50 | PROGRESS NOTE- Residence ---
Progress Note - Resident Providers to CC Resident Creating Document: UMBERTO QUIÑONES, RENARD ~ Antibiotic Timeout Antibiotic Ordered?: No Subjective Patient was seen and examined at bedside, no acute overnight symptoms. She also denied chest pain. Objective Vital Signs Date Time Temp Pulse Resp B/P (MAP) Pulse Ox O2 Delivery O2 Flow Rate FiO2 01/05/25 15:00 97.2 60 14 118/61 (80) 96 Room Air 01/05/25 06:00 2.0 01/04/25 07:58 28 Result Diagram: 01/05/25 0601/05/25 06 Awake , alert, and oriented x4, in apparent distress HEENT: Atraumatic, normocephalic, EOMI, anicteric sclera ; pink conjunctiva Neck: Trachea midline. Supple, full range of motion, no JVD Cardiac: Regular rhythm, regular rate with no murmurs all over the precordium, a linear incision present on the chest Respiratory: Equal breath sounds bilaterally, no tachypnea, no wheezing ,rub or rales, Chest wall is symmetric and without deformity. Gastrointestinal: Abdomen symmetric, non-distended, soft, non-tender, normal bowel sounds x4 quadrant, normoactive, no hepatosplenomegaly Musculoskeletal: No pedal edema, no cyanosis; right groin hematoma: Stable with no acute changes Neurological: Speech is clear, alert, and oriented x 4. No motor or sensory deficit, deep tendon reflexes normal, cerebellar intact. Cranial nerves II-XII intact. Skin: Warm and dry Coagulation Studies Laboratory Tests Test 01/04/25 07:53 Prothrombin Time 9.8 SECONDS (9.0-12.0) INR International Normalized Ratio 1.0 INR Activated Partial Thromboplast Time 24 SECONDS (22-32) Coagulation Comments Advance Care Planning Advanced Care plannin - 30 Minutes Plan Plan 1. Acute Coronary Syndrome (STEMI) Acute New onset heart failure with severely reduced ejection fraction, secondary to obstructive CAD Heart score 5 Initial presentation with retrosternal chest pain, elevated troponin, nondiagnostic EKG. Cath findings: LAD chronic total occlusion, LCx lesion pending PCI. Pending final report Preliminary echocardiogram: Normal LV size and wall thickness. Overall systolic function is moderately to severely reduced. 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 LVEF appears to be about 40% at the base, decreasing to less than 5% at the apex. Management: Continue Aspirin 81 mg daily + Clopidogrel 75 mg daily per Cardiology Continue Atorvastatin 40 mg nightly Continue Carvedilol 3.125 mg BID Lisinopril 5 mg daily as tolerated after med rec Enoxaparin 1 mg/kg BID for anticoagulation given reported heparin allergy; monitor closely for reaction. Pain control PRN with morphine Repeat PCI to LCx planned today, per Dr. MANOLO Chpaa Monitor on telemetry Cardiology following; CT surgery consulted, no surgical intervention recommended 01/05/2025: Patient underwent cardiac catheterization yesterday with stenting to the OM Cardiology recommended to continue aspirin and clopidogrel Continue atorvastatin 40 mg nightly Initiated metoprolol succinate and lisinopril per Cardiology Unable to tolerate spironolactone 2. Aortic stenosis, mild TTE September 2024 shows mild . Recommend outpatient follow up. 3. Acute on Chronic Kidney Disease with possible ESPERANZA, ATN (secondary to contrast) Baseline CKD, now with concern for renal tubular stasis and possible ESPERANZA Plan: Creatinine down to 1.13, continue to monitor 4. Hypertension / Hyperlipidemia Resume and continue home antihypertensives, titrate as tolerated in ACS setting Continue atorvastatin Lipid panel normal, LDL goal less than 55 5. Hypothyroidism Continue levothyroxine Pending TSH 6. Diabetes / Prediabetes Previously labeled prediabetic, A1C 6.1 Monitor glucose with sliding scale insulin if needed Lifestyle counseling deferred until post-acute period 7. COPD & Tobacco Dependence Lifelong smoker, 1 PPD Currently interested in cessation Ongoing counseling being provided Continue home inhalers if used 8. Neuropsychiatric / Behavioral History Prior combative behavior during hospitalization Monitor closely for delirium, agitation, or sedation, especially donald- procedurally Code Status: Full Code. DVT prophylaxis: Heparin SQ Family at bedside, particularly sister Traci (primary advocate/contact)- contact information [phone] Analgesia/ Sedation: Morphine Line/tubes: P IV Nutrition: Heart healthy diet PT: Ordered Prognosis: Guarded Umberto Quiñones MD Internal Medicine Resident, PGY-2 Patient is seen and examined with resident at bedside Date of Service: Jan 05, 2025 Billing Provider: KIERA BOYKIN MD Common Visit Codes: [id number] INP/OBS CARE(HIGH) UMBERTO QUIÑONES, RES Jan 05, 2025 18:50 KIERA BOYKIN MD Jan 07, 2025 08:02
[2025-01-06] VITALS (9 sets, daily range): BP systolic 83–105; BP diastolic 37–56; PULSE 64–72; RESP 14–19; TEMP 97.1–98.2; O2SAT 92–97
[2025-01-06] MEDS: normal saline 500ml IV soln 500 ML IV SCH (07:50)
[2025-01-06] MEDS: levoTHYROXINE 100mcg tablet PO SCH (08:46)
[2025-01-06 12:10] LABS: MEAN PLATELET VOLUME 8.4 FL (7.4-10.4); RED CELL DISTRIBUTION WIDTH 15.9 % (11.5-14.5)
[2025-01-06 12:25] LABS: CREATININE 1.12 MG/DL (0.40-0.90); TOTAL CARBON DIOXIDE 26.1 MMOL/L (24-32); eCRCL 31 ML/MIN; eGFR 47 ML/MIN
--- NOTE | 2025-01-06 15:45 | PROGRESS NOTE- Residence ---
Progress Note - Resident Providers to CC Resident Creating Document: UMBERTO QUIÑONES RES ~ Antibiotic Timeout Antibiotic Ordered?: No Subjective Patient was seen and examined at bedside, no acute overnight symptoms. Patient was extremely depressed and concerned. She has a history of dementia and denied symptoms like chest pain today. Objective Vital Signs Date Time Temp Pulse Resp B/P (MAP) Pulse Ox O2 Delivery O2 Flow Rate FiO2 01/06/25 13:12 18 95 Room Air 01/06/25 06:00 61 01/06/25 02:00 97.1 97/51 (66) 88/50 (63) 01/05/25 06:00 2.0 01/04/25 07:58 28 Result Diagram: 01/06/25 1153 01/06/25 1153 Awake , alert, and oriented x4, in apparent distress HEENT: Atraumatic, normocephalic, EOMI, anicteric sclera ; pink conjunctiva Neck: Trachea midline. Supple, full range of motion, no JVD Cardiac: Regular rhythm, regular rate with no murmurs all over the precordium, a linear incision present on the chest Respiratory: Equal breath sounds bilaterally, no tachypnea, no wheezing ,rub or rales, Chest wall is symmetric and without deformity. Gastrointestinal: Abdomen symmetric, non-distended, soft, non-tender, normal bowel sounds x4 quadrant, normoactive, no hepatosplenomegaly Musculoskeletal: No pedal edema, no cyanosis; right groin hematoma: Stable with no acute changes Neurological: Speech is clear, alert, and oriented x 4. No motor or sensory deficit, deep tendon reflexes normal, cerebellar intact. Cranial nerves II-XII intact. Skin: Warm and dry Coagulation Studies Laboratory Tests Test 01/04/25 07:53 Prothrombin Time 9.8 SECONDS (9.0-12.0) INR International Normalized Ratio 1.0 INR Activated Partial Thromboplast Time 24 SECONDS (22-32) Coagulation Comments Advance Care Planning Advanced Care plannin - 30 Minutes Plan Plan 1. Acute Coronary Syndrome (STEMI) Acute New onset heart failure with severely reduced ejection fraction, secondary to obstructive CAD Heart score 5 Initial presentation with retrosternal chest pain, elevated troponin, nondiagnostic EKG. Cath findings: LAD chronic total occlusion, LCx lesion pending PCI. Pending final report Preliminary echocardiogram: Normal LV size and wall thickness. Overall systolic function is moderately to severely reduced. 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 LVEF appears to be about 40% at the base, decreasing to less than 5% at the apex. Management: Continue Aspirin 81 mg daily + Clopidogrel 75 mg daily per Cardiology Continue Atorvastatin 40 mg nightly Continue Carvedilol 3.125 mg BID Lisinopril 5 mg daily as tolerated after med rec Enoxaparin 1 mg/kg BID for anticoagulation given reported heparin allergy; monitor closely for reaction. Pain control PRN with morphine Repeat PCI to LCx planned today, per Dr. MANOLO Chapa Monitor on telemetry Cardiology following; CT surgery consulted, no surgical intervention recommended 01/05/2025: Patient underwent cardiac catheterization yesterday with stenting to the OM Cardiology recommended to continue aspirin and clopidogrel Continue atorvastatin 40 mg nightly Initiated metoprolol succinate and lisinopril per Cardiology Unable to tolerate spironolactone 01/06/2025: Continue antiplatelets and statins the above Metoprolol succinate and lisinopril are on hold due to hypotensive episode in a.m. Continue morning blood pressures Patient's blood pressure was around 82//52, hence initiated NS at 250 cc/hour Due to the presence of severe systolic heart failure, NS has been discontinued after 5 hours 2. Aortic stenosis, mild TTE September 2024 shows mild . Recommend outpatient follow up. 3. Acute on Chronic Kidney Disease with possible ESPERANZA, ATN (secondary to contrast) Baseline CKD, now with concern for renal tubular stasis and possible ESPERANZA Plan: Creatinine down to 1.1 continue to monitor 4. Hypertension / Hyperlipidemia Resume and continue home antihypertensives, titrate as tolerated in ACS setting Continue atorvastatin Lipid panel normal, LDL goal less than 55 5. Hypothyroidism Continue levothyroxine TSH elevated at 62.5 Hence initial levothyroxine 100 mcg daily Outpatient follow up with repeat TSH in 6 months 6. Diabetes / Prediabetes Previously labeled prediabetic, A1C 6.1 Monitor glucose with sliding scale insulin if needed Lifestyle counseling deferred until post-acute period 7. COPD & Tobacco Dependence Lifelong smoker, 1 PPD Currently interested in cessation Ongoing counseling being provided Continue home inhalers if used 8. Neuropsychiatric / Behavioral History Prior combative behavior during hospitalization Monitor closely for delirium, agitation, or sedation, especially donald- procedurally Code Status: Full Code. DVT prophylaxis: Heparin SQ Family at bedside, particularly sister Traci (primary advocate/contact)- contact information [phone] Analgesia/ Sedation: Morphine Line/tubes: P IV Nutrition: Heart healthy diet PT: Ordered Prognosis: Guarded Umberto Quiñones MD Internal Medicine Resident, PGY-2 Patient is seen and examined with resident at bedside Date of Service: Jan 06, 2025 Billing Provider: KIERA BOYKIN MD Common Visit Codes: [id number] INP/OBS CARE(HIGH) UMBERTO QUIÑONES, RES Jan 06, 2025 15:44 KIERA BOYKIN MD Jan 07, 2025 08:02
[2025-01-07 02:15] VITALS: BP 103/47; PULSE 74; RESP 15; TEMP 97.8; O2SAT 96
[2025-01-07 06:00] VITALS: BP 108/47; PULSE 63; RESP 20; TEMP 97.3; O2SAT 96
[2025-01-07 06:16] LABS: CREATININE 1.02 MG/DL (0.40-0.90); TOTAL CARBON DIOXIDE 27.4 MMOL/L (24-32); eCRCL 34 ML/MIN; eGFR 53 ML/MIN
[2025-01-07 06:22] LABS: MEAN PLATELET VOLUME 8.7 FL (7.4-10.4); RED CELL DISTRIBUTION WIDTH 15.9 % (11.5-14.5)
[2025-01-07 08:00] VITALS: RESP 18; O2SAT 95
[2025-01-07 08:57] VITALS: BP 97/45; PULSE 65
[2025-01-07 11:00] VITALS: BP 105/48; PULSE 67; RESP 18; TEMP 97.5; O2SAT 95
[2025-01-07 15:00] VITALS: BP 96/45; PULSE 72; RESP 26; TEMP 98.3; O2SAT 96
--- NOTE | 2025-01-07 19:36 | DISCHARGE SUMMARY-Residence ---
Discharge Summary Providers to CC Resident Creating Document: NANCY COMER, RES ~ Discharge Summary Admission Diagnosis: STEMI Hospital Course DATE OF ADMISSION: 01/04/2025 DATE OF DISCHARGE: 01/07/2025 Discharge Diagnosis\Comment: 1. Acute Coronary Syndrome (STEMI) Acute New onset heart failure with severely reduced ejection fraction, secondary to obstructive CAD Heart score 5 2. Aortic stenosis, mild 3. Acute on Chronic Kidney Disease with possible ESPERANZA, ATN (secondary to contrast) 4. Hypertension / Hyperlipidemia 5. Hypothyroidism 6. Diabetes / Prediabetes 7. COPD & Tobacco Dependence 8. Neuropsychiatric / Behavioral History Operations\Procedures: Cardiac catheterization Consultants: Cardiology CTVS surgeon Complications: None Condition on DC: Stable for transfer Discharge Summary: HPI as per admitting physician: A 74-year-old female with a history of chronic kidney disease, type 2 diabetes mellitus, hypothyroidism, hyperlipidemia, hyp ertension, COPD, and a remote history of aortic surgery in 1996 (records note an exploratory sternotomy for suspected aortic aneurysm, which was not confirmed intraoperatively). She is a lifelong smoker, averaging approximately one pack per day. She presented to the Emergency Department with retrosternal chest pain that began the prior evening, waking her from sleep. She described the pain as pressure-like, 8/10 in intensity, without clear exacerbating or relieving factors. Nitroglycerin provided no relief. She reported associated nausea but denied vomiting or diaphoresis. Initially, she expressed a desire to leave the hospital, but with encouragement from her sister Traci (supportive advocate), she agreed to remain for further evaluation. In the ED, EKG showed no acute ischemic changes, but troponin was elevated and uptrending. CTA chest ruled out pulmonary embolism, aortic dissection, and aneurysm. Given clinical concern for ACS, she was admitted to the telemetry unit. She has a documented heparin allergy (prior episode of hives and shortness of breath). Angiomax was not available overnight, so she was started on Aggrastat drip, aspirin, atorvastatin, carvedilol, and lisinopril. She subsequently underwent diagnostic cardiac catheterization after a STEMI alert was called. Findings included chronic total occlusion of the LAD and significant LCx disease, for which PCI is being planned today. Cardiothoracic surgery (Dr. Jaeger) was consulted and recommended no surgical intervention at this time. Periprocedurally, she was loaded with aspirin and clopidogrel, and due to uncertainty about her heparin allergy, she was transitioned to enoxaparin 1 mg/kg BID (after an initial 10 mg IV dose). Of note, she has a prior history of behavioral disturbances (June [address] [facility] for aspiration pneumonia/sepsis), where she was combative, refused therapy and intake, and required restraints. Currently, she reports ongoing chest pain following her initial cath procedure and is awaiting repeat PCI for LCx stenting. Hospital course: Initial troponins were elevated, EKG was nondiagnostic, and HEART score was 5, concerning for acute coronary syndrome. He underwent cardiac catheterization which revealed a chronic total occlusion of the LAD and significant LCx disease. On 01/05/2025, he underwent PCI with stenting to the OM branch. CT surgery was consulted but did not recommend surgical intervention. He was continued on dual antiplatelet therapy (aspirin, clopidogrel), atorvastatin, and anticoagulation with enoxaparin given reported heparin allergy.Echocardiography showed new severe LV systolic dysfunction with LV apical aneurysm, LVEF ~40% at the base, decreasing to <5% at the apex. He was initiated on guideline-directed heart failure therapy with metoprolol succinate and lisinopril, though these agents were temporarily held on 01/06/2025 due to hypotension (SBP ~82 mmHg). He received a brief course of IV fluids, which were discontinued after 5 hours given severe systolic dysfunction. Spironolactone was not tolerated. He remained stable on telemetry without recurrent chest pain. His renal function was monitored closely post-contrast. Creatinine jovan transiently but improved to baseline (~1.1) prior to discharge. Other issues during hospitalization included: Mild aortic stenosis (noted on prior TTE; no acute intervention needed). Hypothyroidism with TSH 62.5 started on levothyroxine 100 mcg daily, with outpatient endocrinology follow-up recommended. Prediabetes (A1c 6.1) managed conservatively with glucose monitoring. COPD and tobacco dependence patient expressed interest in cessation, ongoing counseling provided. Neuropsychiatric history of agitation during prior admissions monitored closely, no major behavioral issues this admission. At the time of discharge, the patient was hemodynamically stable, tolerating oral intake, and chest-pain free. Imaging Echocardiogram: Normal LV size and wall thickness. Overall systolic function is moderately to severely reduced. 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 LVEF appears to be about 40% at the base, decreasing to less than 5% at the apex. RV is normal size and function. The left atrium size is normal. Trileaflet AV appears heavily calcified with significant stenosis demonstrated by reduced excursion and increased transvalvular and ascending aorta turbulance. GABI: 1.67 cmsq; Pkv: 2.74 m/sec; Gradients: 30 / 19 mmHG. Trivial insufficiency. Mild MV annular calcification without stenosis. Mild regurgitation. TV appears structurally normal with mild regurgitation. Normal pericardium. No effusion. Discharge Medications (per Cardiology at discharge) Aspirin 81 mg daily Clopidogrel 75 mg daily Atorvastatin 40 mg nightly Levothyroxine 100 mcg daily Beta-karen (metoprolol succinate) and lisinopril No spironolactone (not tolerated) Continue home inhalers PRN for COPD Follow-Up Cardiology: for ACS follow-up, titration of heart failure therapy, repeat echo in 3 months Primary care: blood pressure, lipid, and diabetes risk management Outpatient surveillance for COPD and tobacco cessation support Lifestyle: strict smoking cessation, heart-healthy diet, medication adherence counseling Physical examination today Awake , alert, and oriented x4, in apparent distress HEENT: Atraumatic, normocephalic, EOMI, anicteric sclera ; pink conjunctiva Neck: Trachea midline. Supple, full range of motion, no JVD Cardiac: Regular rhythm, regular rate with no murmurs all over the precordium, a linear incision present on the chest Respiratory: Equal breath sounds bilaterally, no tachypnea, no wheezing ,rub or rales, Chest wall is symmetric and without deformity. Gastrointestinal: Abdomen symmetric, non-distended, soft, non-tender, normal bowel sounds x4 quadrant, normoactive, no hepatosplenomegaly Musculoskeletal: No pedal edema, no cyanosis; right groin hematoma: Stable with no acute changes Neurological: Speech is clear, alert, and oriented x 4. No motor or sensory deficit, deep tendon reflexes normal, cerebellar intact. Cranial nerves II-XII intact. Skin: Warm and dry Laboratory Tests Test 01/06/25 11:53 01/07/25 05:17 White Blood Count 6.7 X10'3 5.8 X10'3 Red Blood Count 2.97 X10'6 2.82 X10'6 Hemoglobin 9.1 g/dl 8.8 g/dl Hematocrit 27.9 % 26.5 % Mean Corpuscular Volume 94.0 FL 93.8 FL Mean Corpuscular Hemoglobin 30.7 PG 31.2 PG Mean Corpuscular Hemoglobin Concent 32.7 g/dL 33.3 g/dL Red Cell Distribution Width 15.9 % 15.9 % Platelet Count 236 X10'3 236 X10'3 Mean Platelet Volume 8.4 FL 8.7 FL Neutrophils (%) (Auto) 74.0 % 67.0 % Lymphocytes (%) (Auto) 14.8 % 22.4 % Monocytes (%) (Auto) 7.9 % 7.4 % Eosinophils (%) (Auto) 2.5 % 2.7 % Basophils (%) (Auto) 0.8 % 0.5 % Neutrophils # (Auto) 4.9 X10'3 3.9 X10'3 Lymphocytes # (Auto) 1.0 X10'3 1.3 X10'3 Monocytes # (Auto) 0.5 X10'3 0.4 X10'3 Eosinophils # (Auto) 0.2 X10'3 0.2 X10'3 Basophils # (Auto) 0.1 X10'3 0.0 X10'3 CBC Comment Sodium Level 139 MMOL/L 142 MMOL/L Potassium Level 4.0 MMOL/L 3.9 MMOL/L Chloride Level 106 MMOL/L 108 MMOL/L Carbon Dioxide Level 26.1 MMOL/L 27.4 MMOL/L Anion Gap 7 7 Blood Urea Nitrogen 30 MG/DL 30 MG/DL Creatinine 1.12 MG/DL 1.02 MG/DL Estimated GFR/1.73 m2 47 ML/MIN 53 ML/MIN BUN/Creatinine Ratio 26.8 29.4 Glucose Level 118 MG/DL 88 MG/DL Calcium Level 8.4 MG/DL 8.4 MG/DL Magnesium Level 2.5 MG/DL 2.3 MG/DL Total Bilirubin 0.3 MG/DL 0.3 MG/DL Aspartate Amino Transf (AST/SGOT) 55 U/L 45 U/L Alanine Aminotransferase (ALT/SGPT) 16 U/L 14 U/L Alkaline Phosphatase 57 IU/L 58 IU/L Total Protein 5.2 G/DL 5.9 G/DL Albumin 2.5 G/DL 2.6 G/DL Globulin 2.7 G/DL 3.3 G/DL Albumin/Globulin Ratio 0.9 0.8 Chemistry Comments *Problems/Diagnosis: (1) STEMI (ST elevation myocardial infarction) Status: Acute Total Time Spent on D/C: > 30 Minutes Date of Service: Jan 07, 2025 Billing Provider: KIERA BOYKIN MD,NANCY, RES Jan 07, 2025 19:33
[2025-01-08] MEDS ORDERED: EMPAGLIFLOZIN 10 MG TABLET PO SCH (08:00)
--- NOTE | 2025-01-17 01:24 | CARDIOLOGY REPORT ---
DATE OF SERVICE: 01/04/2025 DICTATING PHYSICIAN: Angela Chapa MD CARDIAC CATHETERIZATION REPORT DATE OF STUDY: 01/04/2025 PROCEDURES: * Selective coronary angiography. * Angioplasty of the circumflex coronary artery. * Stenting x 2 of the circumflex coronary artery. * Conscious sedation monitoring time for 30 minutes. INDICATION: STEMI earlier this morning. PHYSICIAN: Angela Chapa MD DESCRIPTION OF PROCEDURE: After informed consent was obtained, the patient was brought to the lab where she was prepped and draped in the usual sterile fashion. A 6-Tajik sheath was inserted into the right femoral artery. Thereafter, using an XBC guiding catheter, the catheter was advanced and the left main coronary artery intubated. Selective coronary angiography performed and PCI was performed as described below. HEMODYNAMICS: For the patient's hemodynamics, please refer to the event log. FINDINGS: The patient's circumflex coronary artery this morning had GENEVIEVE 1 flow. The patient is noted to have GENEVIEVE 3 flow. 90% stenosis of the obtuse marginal branch is noted. PERCUTANEOUS CORONARY INTERVENTION: Using an 0.014 Choice PT wire, the wire was carefully navigated across the lesion. This was then predilated with a 2.5 x 12 mm Trek balloon. Attempted advancing a stent across the lesion was made without success. Using a 3.0 x 20 mm Trek balloon, the lesion was then dilated again. Next, a 2.5 x 15 mm [place] stent was advanced across the lesion where it was deployed. A second 3.0 x 15 mm [place] stent was advanced proximal to the previously deployed stent where it was deployed. Both stents were overlapped and angioplastied to rated burst atmospheres. Follow-up angiography revealed excellent angiographic results. IMPRESSION: Angioplasty/stenting x 2 of the circumflex coronary artery with excellent angiographic results. RECOMMENDATION: Of note is that the patient underwent coronary angiography this morning with a subtotaled LAD and a discrete 75-80% stenosis of the right coronary artery. The patient was on Plavix and therefore PCI of the obtuse marginal branch recommended, which I performed. The patient will be evaluated by Dr. Jaeger for future surgical revascularization of the LAD and RCA. Angela Chapa MD TID: [id number] RECEIPT: [id number] ELISABETH/TG
--- NOTE | 2025-01-17 01:27 | CARDIOLOGY REPORT ---
DATE OF SERVICE: 01/04/2025 DICTATING PHYSICIAN: Angela Chapa MD CARDIAC CATHETERIZATION REPORT DATE OF PROCEDURE: 01/04/2025 PROCEDURES: * Left heart catheterization. * Selective coronary angiography. * Left ventriculography. * Aortic root angiography. * Left subclavian and nonselective left internal mammary artery angiography. * Conscious sedation monitoring time for 15 minutes. INDICATION: STEMI. PHYSICIAN: Angela Chapa MD DESCRIPTION OF PROCEDURE: After informed consent was obtained, the patient was brought to the lab where she was prepped and draped in the usual sterile fashion. A 6-German sheath was inserted into the right femoral artery. Next, using a JL4 followed by a JR4 catheter, selective coronary angiography was performed. The JR4 catheter was then manipulated to engage the left subclavian, and left subclavian and nonselective left internal mammary artery angiography was performed. Thereafter, using a pigtail catheter, the catheter was advanced into the left ventricle where left ventriculography was performed. The catheter was pulled back into the ascending aorta and aortic root angiography performed. HEMODYNAMICS: For the patient's hemodynamics, please refer to the event log. No significant gradient across the aortic valve was noted. FINDINGS: The left main coronary artery is a short caliber vessel, free of significant disease. The left anterior descending coronary artery is severely diseased proximally. The mid vessel immediately after the diagonal branch is subtotaled with GENEVIEVE 1 flow. The diagonal branch of the LAD has a 40-50% stenosis. The circumflex coronary artery is a medium caliber vessel. The obtuse marginal branch of the circumflex coronary artery has a 95% stenosis with GENEVIEVE 1 flow. The right coronary artery is a normal caliber dominant vessel with a discrete 70-80% mid vessel stenosis. Left ventriculography revealed the presence of global left ventricular hypokinesis. Aortic root angiography did not reveal any other bypass grafts. IMPRESSION: * Severe 3-vessel coronary artery disease. * Global left ventricular hypokinesis. RECOMMENDATION: Surgical revascularization. Angela Chapa MD TID: [id number] RECEIPT: [id number] ELISABETH/TG
== END 2025-01-07 15:44 | DRG 321 ==
LOC: ER 07:44 → PCU 3S 08:18
PROVIDERS: ADMIT Internal Medicine; ATTEND Internal Medicine
PROC: 027035Z Dilation of Coronary Artery, One Artery with Two Drug-eluting Intraluminal Devices, Percutaneous Approach (ICD-10-PCS; principal; 2025-01-04)
PROC: B2101ZZ Fluoroscopy of Single Coronary Artery using Low Osmolar Contrast (ICD-10-PCS; 2025-01-04)
PROC: B2151ZZ Fluoroscopy of Left Heart using Low Osmolar Contrast (ICD-10-PCS; 2025-01-04)
PROC: B31N1ZZ Fluoroscopy of Other Upper Arteries using Low Osmolar Contrast (ICD-10-PCS; 2025-01-04)
DX: I21.19 ST elevation (STEMI) myocardial infarction involving other coronary artery of inferior wall (principal); I50.21 Acute systolic (congestive) heart failure; N17.0 Acute kidney failure with tubular necrosis; I13.0 Hypertensive heart and chronic kidney disease with heart failure and stage 1 through stage 4 chronic kidney disease, or unspecified chronic kidney disease; F17.210 Nicotine dependence, cigarettes, uncomplicated; E78.5 Hyperlipidemia, unspecified; E03.9 Hypothyroidism, unspecified; G35 Multiple sclerosis; J44.9 Chronic obstructive pulmonary disease, unspecified; I25.10 Atherosclerotic heart disease of native coronary artery without angina pectoris; N18.9 Chronic kidney disease, unspecified; E11.22 Type 2 diabetes mellitus with diabetic chronic kidney disease; Z88.1 Allergy status to other antibiotic agents; Z79.01 Long term (current) use of anticoagulants; Z88.2 Allergy status to sulfonamides; Z88.8 Allergy status to other drugs, medicaments and biological substances; Z90.710 Acquired absence of both cervix and uterus; Z79.84 Long term (current) use of oral hypoglycemic drugs; Z79.899 Other long term (current) drug therapy; Z85.3 Personal history of malignant neoplasm of breast
CPT/HCPCS: 93306; 93458; 96372; 96374; 96375; 96376; 99285; C9600; 36415; 71045; 80053; 80061; 81001; 83036; 83735; 83880; 83930; 83935; 84133; 84300; 84443; 84484; 85025; 85610; 85730; 87077; 87081; 87088; 87186; 87207; 93005; 99152; 99153; A4615; A6258; C1725; C1751; C1760; C1769; C1874; G0378; J0169; J1200; J1644; J1650; J1720; J2003; J2250; J2270; J2371; J2405; J3010; J7040; Q9967

== ENCOUNTER 2025-03-13 19:04 | Emergency (ER) | payer BC ==
[~2025-03-13] VITALS: Ht 147.3 cm; Wt 55.0 kg
--- NOTE | 2025-03-13 19:54 | Physician Documentation ---
History of Present Illness ~ Chief Complaint: Eye Pain Stated Complaint: R EYE PAIN Time Seen by MD: 19:33 Primary Medical Doctor: J CARLOS Mode of Arrival: POV AVELINO This is a 75-year-old female with a known history of macular degeneration, who had received a injection from Dr. Darrin Gu on , presents for evaluation of eye redness, pain, blurry vision that started today and progressed throughout the day. No particular palliating or aggravating factors. Denies any trauma. This never happened in the past. She has a received multiple injections. Denies any other symptoms. She came to the emergency department because she was told to go to the ER if she develops any eye redness. With a Records from [facility] reviewed. Based on notes from 01/26/2025, patient was seen for evaluation of blurry vision in the right eye in the left eye. At the time she appears to have complaint of many floaters in the right eye for the last two years without flashes of light. Based on these records, her visual acuity was OD hand motion-20/400, OS 20/60. Medication Reconciliation Allergies: Coded Allergies: Sulfa (Sulfonamide Antibiotics) (Verified Allergy, Severe, ANAPHYLACTIC SHOCK, 03/13/25) capsaicin (Verified Allergy, Severe, BLISTERS ERYTHEMA RASH, 03/13/25) ketoprofen (Verified Allergy, Severe, ANAPHALAXIS, 03/13/25) cefotaxime (Verified Allergy, Intermediate, WHEAL AND FARE RXN, RED WELTS ON LIMBS AND FACE, 03/13/25) Penicillins (Verified Allergy, Mild, RASH HIVES, 03/13/25) Tetracyclines (Verified Allergy, Mild, HIVES, 03/13/25) doxycycline (Verified Allergy, Mild, RASH, 10/10/24) gentamicin (Verified Allergy, Mild, RASH, 10/10/24) heparin (porcine) (Verified Allergy, Mild, HIVES, 10/10/24) sulfacetamide (Verified Allergy, Mild, HIVES, 10/10/24) tobramycin (Verified Allergy, Mild, RASH, 10/10/24) Aminoglycosides (Unverified Allergy, Unknown, 10/10/24) LISTED ON HER MEDICAL RECORDS BY [facility] [place], [place] Pyrimidine Analogues (Unverified Allergy, Unknown, 10/10/24) LISTED ON HER MEDICAL RECORDS BY [facility] [place], [place] ciprofloxacin (Unverified Allergy, Unknown, 10/10/24) LISTED ON HER MEDICAL RECORDS BY [facility] [place], [place] zolpidem (Verified Adverse Reaction, Severe, SLEEPWALKING, INAPPROPRIATE BEHAVIOR, 10/10/24) minocycline (Verified Adverse Reaction, Intermediate, NAUSEA AND VOMITING, 10/10/24) promethazine (Verified Adverse Reaction, Mild, RASH, 10/10/24) Scheduled Albuterol Sulfate (Albuterol Sulfate), Unknown Dose NEB Q6H, (Reported) Atorvastatin Calcium (Lipitor), 1 TABLET PO HS, (Reported) Clopidogrel Bisulfate (Plavix), 75 MG PO DAILY, (Reported) Fexofenadine* (Angelica*), Unknown Dose PO DAILY, (Reported) Fluticasone/Vilanterol (Breo Ellipta 100-25 Mcg INH), 1 PUFFS INH DAILY Levothyroxine Sodium (Synthroid), 1 TAB PO DAILY, (Reported) Lisinopril (Lisinopril), 1 TAB PO DAILY, (Reported) Metformin Hcl* (Glucophage*), 1 TAB PO DAILY, (Reported) Omeprazole (Prilosec), 20 MG PO DAILY, (Reported) Trazodone HCl (Trazodone HCl), 1 TAB PO HS, (Reported) Past Medical History Past Medical History: Multiple Sclerosis, *RENAL/*, Chronic Back Pain Past Surgical History: noncontributory Alcohol Use: None Drug Use: none Lives with: Family Lives In: Home Review of Systems ROS 10 point review of systems was performed and unless noted above in HPI is negative for acute process/complaint. Physical Exam Vital Signs: Temperature: 97.6, Source: Temporal, Heart Rate: 74, Respiratory Rate: 16, BP: 141/45, Pulse Oximetry: 99, Weight: 55.000 Physical Exam Physical examination: GENERAL: Awake, alert, oriented, GCS 15, no apparent distress, non-toxic appearing, answers questions, follows commands appropriately. Examined in bed 4. HEENT: Atraumatic, normocephalic, pupils equal, extraocular muscles intact Active gross movements, sclerae anicteric, mucus membranes moist, no stridor. NECK: Midline, no JVD CARDIOVASCULAR: Good skin perfusion without evidence of pallor, mottling. PULMONARY: Nonlabored, symmetric chest rise, no audible wheezing, no accessory muscle use, no respiratory distress, speaking in full sentences. GASTROINTESTINAL: Not distended. NEUROLOGIC: Lucid with normal mental status. Normal facial symmetry. Moves all extremities symmetrically and with purpose. No truncal ataxia. Speech is fluid without evidence of dysarthria or aphasia, no focal deficits appreciated. EXTREMITIES: Acute deformities Skin: warm, dry PSYCHIATRIC: Normal affect, normal insight, normal concentration. Focused exam: [Eye exam was performed. Lids were everted, there was no appreciable foreign body. There is evidence of subconjunctival hemorrhage without limbal involvement. Anterior chamber is clear, without hypopyon or hyphema. Arcus senilis noted. Full extraocular range of motion. Fluorescein exam showed no uptake, negative Rj sign. Intra-ocular pressure is 13 on the right side. Administration of proparacaine did not resolve the pain. Visual acuity OD: Light only, OS: 20/100] Procedures Additional Procedures Additional Procedures: Other Procedure Note Procedure: Ocular ultrasound Authorized and performed:Jordan Urena DO Indication: Painful vision loss in the right eye Flat probe ultrasound was used. Globe was examined in detail. There is no evidence of retinal detachment, there is no evidence of vitreous detachment or vitreous hemorrhage. The optic nerve sheath diameter is normal. Lens and inappropriate position. Interpretation: No obvious acute disease. Progress Results/Orders Results/Orders Completed Orders - JORDAN URENA DO Proparacaine Ophth Solution (Alcaine Oph (03/13/25 19:45) Fluorescein 1mg Ophthal Strip (Ful-Beverly O (03/13/25 19:45) Cbc/Diff (03/13/25 19:54) ESR (03/13/25 19:54) C-Reactive Protein (03/13/25 19:54) CMP (03/13/25 19:54) Lorazepam Tablet (Ativan Tablet) (03/13/25 22:00) Medications Received in ER Medications (Trade) Dose Ordered Sig/Dereck Route PRN Reason Start Time Stop Time Status Last Admin Dose Admin (Alcaine ophth solution) 2 drop ONCE ONCE EACHEYE 03/13/25 19:45 03/13/25 19:46 DC 03/13/25 20:25 2 DROP (Ful-Beverly ophth strip) 1 mg ONCE ONCE EACHEYE 03/13/25 19:45 03/13/25 19:46 DC 03/13/25 20:25 1 MG (Ativan tablet) 0.5 mg ONCE ONCE PO 03/13/25 22:00 03/13/25 22:01 DC 03/13/25 22:01 0.5 MG Vital Signs 03/13/25 03/13/25 03/13/25 03/13/25 19:14 19:27 20:27 21:20 Temp 97.6 97.6 Pulse 74 69 Resp 16 16 15 18 B/P (MAP) 141/45 159/57 (91) 149/55 (86) Pulse Ox 99 97 99 O2 Flow Rate 0 0 03/13/25 22:01 Resp 16 Laboratory Tests Test 03/13/25 20:14 White Blood Count 6.8 Red Blood Count 4.04 L Hemoglobin 12.3 Hematocrit 37.8 Mean Corpuscular Volume 93.4 Mean Corpuscular Hemoglobin 30.5 Mean Corpuscular Hemoglobin Concent 32.6 L Red Cell Distribution Width 14.6 H Platelet Count 349 Mean Platelet Volume 8.6 Neutrophils (%) (Auto) 74.3 Lymphocytes (%) (Auto) 15.1 L Monocytes (%) (Auto) 7.1 Eosinophils (%) (Auto) 2.8 Basophils (%) (Auto) 0.7 Neutrophils # (Auto) 5.0 Lymphocytes # (Auto) 1.0 L Monocytes # (Auto) 0.5 Eosinophils # (Auto) 0.2 Basophils # (Auto) 0.1 CBC Comment Erythrocyte Sedimentation Rate 40 H Sodium Level 143 Potassium Level 4.7 Chloride Level 106 Carbon Dioxide Level 30.4 Anion Gap 7 L Blood Urea Nitrogen 28 H Creatinine 0.94 H Estimated GFR/1.73 m2 58 BUN/Creatinine Ratio 29.8 H Glucose Level 96 Calcium Level 9.3 Total Bilirubin 0.2 Aspartate Amino Transf (AST/SGOT) 18 Alanine Aminotransferase (ALT/SGPT) 13 Alkaline Phosphatase 127 H C-Reactive Protein 0.25 Total Protein 7.7 Albumin 3.6 Globulin 4.1 Albumin/Globulin Ratio 0.9 L Chemistry Comments Medical Decision Making 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 All questions have been answered, all concerns were addressed unless otherwise documented. I was available throughout their ED stay for frequent reassessment and questions. Differential Diagnoses (considered and possible or likely): [Subconjunctival hemorrhage, conjunctivitis, corneal abrasion, corneal ulcer, endophthalmitis given recent injection, less likely uveitis given lack of limbal involvement, unlikely to be ruptured globe. Acute glaucoma is also in differential diagnosis. Giant cell arteritis is also in differential diagnosis as well as CRAO/CRVO] ??Differential Diagnoses (considered and unlikely, not requiring evaluation currently): [No evidence of trauma] MDM Data Please see [facility] for the following: Independent Historians and external Records Review. 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 All vitals signs/haemodynamics, ordered tests were independently reviewed and interpreted by myself. Nursing triage complaint and vitals reviewed, additional nursing notes were reviewed as available and I agree unless otherwise noted or documented in contra diction in the chart Vital Signs: Independently reviewed Labs: Independently interpreted Imaging: Independently interpreted Old Medical Records: Independently reviewed, see [facility] for relevant summary and information Pulse Oximetry: [96%] interpreted as [normal on room air] by me [Overage Shortage And Damage Clerk: [Regular Rate, Regular rhythm, no ectopy, NSR] reviewed and interpreted by me] Additionally notably showing: [Hemodynamics reviewed. The patient is not febrile, not tachycardic, no evidence of hypotension respiratory distress. CBC normal, no leukocytosis. ESR is elevated at 40. Chemistry shows dehydration. CRP is not elevated.] Tests considered but not ordered include: [Imaging does not appear to be necessary] Social Determinants of Health Impact: Patient was evaluated in [facility], [facility] [place] to healthcare due to below par ratio of patient to medical providers. [] Comorbid Conditions Impacting Present Evaluation and Care/Treatment: [Macular degeneration] Management Discussions with other Healthcare Providers: [Dr. Wynn, albacore fishing boat crewman on-call for [facility]. He very kindly agreed to consult, reviewed photographs, and advised the patient to call his office on Saturday.] Treatment and Disposition Medication Management (Given or considered): []. See EMR for details Consideration for Hospitalization/Escalation/Deescalation of Care: Admission for observation has been considered, [however the patient is able to tolerate p.o., their symptoms are controlled, they are able to rely on oral medications, and their chief complaint/diagnosis can be managed on outpatient basis.] ?ED Course:?[No clinical deterioration] ?Shared decision making:?[Patient is hemodynamically stable for discharge home with follow with their primary care provider. [ ] Specific and cautious return precautions provided and discussed with full understanding. Any incidental findings were also discussed and follow up recommendations given. [] All questions answered. Patient/family were able to verbalize back return precautions. Patient/family agree to plan. Copies of imaging and laboratory studies were provided.] Code status:?FULL Please see the full Electronic Medical Record for full details of nursing documentation, medications list, other records of complete past medical history and conditions, vital signs, laboratory studies, and any radiologic study interpretations by radiologists. Portions of this note were completed using eventuosity dictation software and as a result there may exist minor errors in spelling. I have reviewed elements of past family and social history and agree as included in note. Ear Diff. Dx: Considerations: Unlikely: Other Eye Diff. Dx: Considerations: Include: Conjuctivits-allergic, Conjuctivitis- bacterial, Conjuctivits-chlamydial, Conjuctivitis-viral, Corneal abrasion, Corneal laceration, Corneal ulceration, Foreign body-conjuctiva, Foreign body- corneal, Foreign body-lid, Glaucoma, Iritis, Retinal artery occulsion, Retinal vein occlusion, Subconjunctival hem, Vitreous hemorrhage; Unlikely: Foreign body-intraocular, Globe rupture, Orbital cellulitis, Periobital cellulitis, Uveitis Nose Diff. Dx: Considerations: Unlikely: Other Tooth Diff. Dx: Considerations: Unlikely: Other Throat Diff Dx: Considerations: Unlikely: Other Departure Disposition: HOME / SELF CARE / HOMELESS Impression: Primary Impression: Vision loss of right eye Additional Impression: Subconjunctival hemorrhage of right eye Condition: Stable Additional Instructions: Please follow-up with the Dr. Rhett Wynn, ophthalmology [facility] [place] [address] Darrin Gu Referrals: NO PRIMARY CARE PROVIDER (PCP) Prescriptions Hydrocodone Bit/Acetaminophen 5/325 MG ([place] 5/325 MG) 5 Mg/325 Mg Tablet 1 TAB PO Q6H PRN for pain, #14 TAB Prov: JORDAN URENA DO 03/13/25 Education Educated: Patient, Family Educated regarding: diagnosis, treatment, prognosis, need for follow up Signature Scribe Signature: No scribe Attestation: This note accurately reflects clinical decisions, work performed by myself, DO EDVIN Mondragon NICHOLAS M DO Mar 13, 2025 19:54
[2025-03-13 20:23] LABS: MEAN PLATELET VOLUME 8.6 FL (7.4-10.4); RED CELL DISTRIBUTION WIDTH 14.6 % (11.5-14.5)
[2025-03-13] MEDS: proparacaine 0.5% ophthalmic drops 15ml EACHEYE ONE (20:25)
[2025-03-13] MEDS: fluorescein sod 1mg ophthalmic strip EACHEYE ONE (20:25)
[2025-03-13 20:36] LABS: CREATININE 0.94 MG/DL (0.40-0.90); TOTAL CARBON DIOXIDE 30.4 MMOL/L (24-32); eCRCL 33 ML/MIN; eGFR 58 ML/MIN
[2025-03-13] MEDS ORDERED: HYDR-3965 PO (22:33)
[2025-03-13 22:55] VITALS: BP 117/45; PULSE 86; RESP 16; TEMP 98.6; O2SAT 96
== END 2025-03-13 22:58 | disposition home or self-care (01) ==
LOC: ER 19:04
DX: H11.31 Conjunctival hemorrhage, right eye (principal); H54.61 Unqualified visual loss, right eye, normal vision left eye; G89.29 Other chronic pain; Z88.2 Allergy status to sulfonamides; Z88.1 Allergy status to other antibiotic agents; Z88.0 Allergy status to penicillin; Z88.8 Allergy status to other drugs, medicaments and biological substances; Z79.899 Other long term (current) drug therapy; Z79.84 Long term (current) use of oral hypoglycemic drugs
CPT/HCPCS: 36415; 80053; 85025; 85651; 86140; 99284; J3490; A6449